=== PATIENT | female | born 1955 | race Caucasian/White ===

== ENCOUNTER 2017-05-01 18:28 | Inpatient (IN) | payer MEDICAID ==
[~2017-05-01] VITALS: Ht 167.6 cm; Wt 90.9 kg
[~2017-05-01 18:28] MED LIST: ALLO100T PO; CARV-50 PO; CITA40TA11 PO; CLON-527 PO; DILT30TA5 PO; HYDR-565 PO; LEVO50TA PO; MAG355OR18 PO; MULT1TAB74 PO; OMEP20TA5 PO; VENL150C58 PO
[2017-05-01] MEDS ORDERED: normal saline 1000ML IV soln IVB ONE (18:35)
[2017-05-01] MEDS ORDERED: albuterol 2.5 MG/3 ML nebule NEB ONE (18:45)
[2017-05-01] MEDS ORDERED: ipratropium/albuterol 3ml nebule NEB ONE (18:45)
[2017-05-01 19:17] LABS: BASOPHILS % (AUTO) 0 % (0-1); EOSINOPHILS # (AUTO) 0.2 X10'3 (0-0.9); EOSINOPHILS % (AUTO) 2.2 % (0-6); HEMATOCRIT 32.5 % (35.0-45.0); HEMOGLOBIN 10.8 g/dl (12.0-16.0); LYMPHOCYTES # (AUTO) 2.8 X10'3 (1.1-4.8); LYMPHOCYTES % (AUTO) 33.5 % (21-51); MEAN CORPUSCULAR HEMOGLOBIN 25.4 PG (27.0-31.0); MEAN CORPUSCULAR HGB CONC 33.1 % (33.0-36.5); MEAN CORPUSCULAR VOLUME 76.5 FL (78-98); MEAN PLATELET VOLUME 7.4 FL (7.4-10.4); MONOCYTES # (AUTO) 0.4 X10'3 (0-0.9); MONOCYTES % (AUTO) 4.6 % (2-12); NEUTROPHILS # (AUTO) 5.1 X10'3 (1.8-7.7); NEUTROPHILS % (AUTO) 59.7 % (42-75); PLATELET COUNT 320 X10'3 (140-440); RED BLOOD COUNT 4.25 X10'6 (4.20-5.60); RED CELL DISTRIBUTION WIDTH 21.5 % (11.5-14.5); WHITE BLOOD COUNT 8.5 X10'3 (4.5-11.0)
[2017-05-01 19:28] LABS: PROTHROMBIN TIME 10.6 SECONDS (9.0-12.0)
[2017-05-01 19:32] LABS: ALANINE AMINOTRANSFERASE 68 U/L (12-78); ALBUMIN 3.4 G/DL (3.4-5.0); ALBUMIN/GLOBULIN RATIO 0.6 (1.1-1.5); ALKALINE PHOSPHATASE 182 IU/L (46-116); ANION GAP 8 (8-16); ASPARTATE AMINO TRANSFERASE 132 U/L (10-37); BILIRUBIN,TOTAL 0.4 MG/DL (0.1-1.0); BLOOD UREA NITROGEN 8 MG/DL (7-18); BUN/CREATININE RATIO 15.4 (6.6-38.0); CALCIUM 8.9 MG/DL (8.5-10.1); CHLORIDE 99 MMOL/L (99-107); CREATININE 0.52 MG/DL (0.40-0.90); GLUCOSE 87 MG/DL (70-104); POTASSIUM 4.2 MMOL/L (3.5-5.1); SODIUM 133 MMOL/L (135-145); TOTAL CARBON DIOXIDE 26.3 MMOL/L (24-32); TOTAL PROTEIN 9.3 G/DL (6.4-8.2); eGFR > 90 ML/MIN
[2017-05-01 19:34] LABS: ETHANOL 0.335 GM/DL (0.0-0.010)
[2017-05-01 20:07] LABS: CLARITY,URINE CLOUDY (Clear); COLOR,URINE YELLOW (Yellow); GLUCOSE, URINE NEGATIVE (Neg); KETONES,URINE NEGATIVE (Neg); LEUKOCYTE ESTERASE ,URINE SMALL (Neg); NITRITES, URINE NEGATIVE (Neg); OCCULT BLOOD,URINE MODERATE (Neg); PROTEIN,URINE 30 mg/dl (Neg); UROBILINOGEN,URINE 0.2 E.U/dL (0.2-1.0)
[2017-05-01 20:09] LABS: UA COLLECTION TYPE VOIDED
[2017-05-01] MEDS ORDERED: methylPREDNISolone sod succ 125mg/2ml vial IV ONE (20:20)
[2017-05-01] MEDS ORDERED: furosemide 40mg/4ml inj IV ONE (20:20)
[2017-05-01 20:22] LABS: BACTERIA,URINE 4+ /HPF (Neg); SQUAMOUS EPITHELIAL CELL,UR MODERATE /LPF (FEW)
[2017-05-01 20:25] LABS: FINE GRANULAR CAST 0-3 /LPF (NEGATIVE); MUCUS STRANDS FEW /LPF (Neg)
[2017-05-01 20:46] LABS: MAGNESIUM 1.8 MG/DL (1.5-2.4)
[2017-05-01] MEDS ORDERED: LORazepam 2 mg/ml vial IV STA (21:18)
[2017-05-01] MEDS ORDERED: thiamine inj. 100 MG in normal saline 100ml IV soln 100 ML IV ONE (21:25)
[2017-05-01] MEDS ORDERED: mag hydrox/Alum hydrox/simeth 30ml oral suspension PO PRN (21:25)
[2017-05-01] MEDS ORDERED: magnesium hydroxide 30ml (MOM) UD suspension PO PRN (21:25)
[2017-05-01] MEDS ORDERED: acetaminophen 325mg tablet PO PRN ×2 (21:25)
[2017-05-01] MEDS ORDERED: ipratropium/albuterol 3ml nebule NEB PRN (21:25)
[2017-05-01] MEDS: normal saline 1000ml 1,000 ML IV SCH (22:10)
[2017-05-01] MEDS ORDERED: normal saline 100ml IV soln 100 ML IV ONE (23:00)
[2017-05-01] MEDS ORDERED: thiamine 100mg/ml 2ml inj. IV ONE (23:00)
[2017-05-01] MEDS: ondansetron/PF 4mg/2ml inj IV PRN (23:17)
[2017-05-02] VITALS: BP 136/76
[2017-05-02] MEDS: LORazepam 2 mg/ml vial IV PRN ×7 (00:32→21:46)
[2017-05-02] MEDS: methylPREDNISolone sod succ 125mg/2ml vial IV SCH ×4 (02:42→20:29)
[2017-05-02 03:15] LABS: BASOPHILS % (AUTO) 0 % (0-1); EOSINOPHILS % (AUTO) 0.7 % (0-6); HEMOGLOBIN 9.9 g/dl (12.0-16.0); LYMPHOCYTES # (AUTO) 0.5 X10'3 (1.1-4.8); MEAN CORPUSCULAR HEMOGLOBIN 25.1 PG (27.0-31.0); MEAN CORPUSCULAR VOLUME 76.1 FL (78-98); MEAN PLATELET VOLUME 7.4 FL (7.4-10.4); MONOCYTES # (AUTO) 0.1 X10'3 (0-0.9); MONOCYTES % (AUTO) 0.9 % (2-12); NEUTROPHILS # (AUTO) 5.6 X10'3 (1.8-7.7); NEUTROPHILS % (AUTO) 90.4 % (42-75); PLATELET COUNT 273 X10'3 (140-440); RED BLOOD COUNT 3.94 X10'6 (4.20-5.60); RED CELL DISTRIBUTION WIDTH 21.4 % (11.5-14.5); WHITE BLOOD COUNT 6.2 X10'3 (4.5-11.0)
[2017-05-02 03:19] LABS: ALBUMIN 3.3 G/DL (3.4-5.0); ANION GAP 13 (8-16); BLOOD UREA NITROGEN 7 MG/DL (7-18); CALCIUM 8.2 MG/DL (8.5-10.1); CHLORIDE 100 MMOL/L (99-107); CREATININE 0.54 MG/DL (0.40-0.90); GLUCOSE 140 MG/DL (70-104); MAGNESIUM 1.4 MG/DL (1.5-2.4); PHOSPHORUS 3.9 MG/DL (2.3-4.5); POTASSIUM 3.5 MMOL/L (3.5-5.1); SODIUM 138 MMOL/L (135-145); TOTAL CARBON DIOXIDE 24.6 MMOL/L (24-32); eGFR > 90 ML/MIN
[2017-05-02] MEDS ORDERED: pantoprazole 40mg Tablet.DR PO SCH (07:00)
[2017-05-02 07:13] VITALS: BP 149/91
[2017-05-02] MEDS ORDERED: citalopram 20mg tablet PO SCH (08:00)
[2017-05-02] MEDS ORDERED: folic acid inj. 2 MG, thiamine inj. 100 MG, MVI, adult No.4 with vit. K 10 ML in dextro... IV SCH ×4 (08:00)
[2017-05-02] MEDS: allopurinol 100mg tablet PO SCH (08:18)
[2017-05-02] MEDS: levoTHYROXINE 100mcg tablet PO SCH (08:18)
[2017-05-02] MEDS: venlafaxine XR 75mg capsule (Q24H) PO SCH (08:18)
[2017-05-02] MEDS: folic acid 1mg tablet PO SCH (08:18)
[2017-05-02] MEDS: carVEDilol 12.5mg tablet PO SCH ×2 (08:18→20:29)
[2017-05-02] MEDS: multivitamins, therapeutics tablet PO SCH (08:18)
[2017-05-02] MEDS: thiamine 100mg tablet PO SCH (08:18)
[2017-05-02] MEDS: diltiazem 30mg tablet PO SCH ×2 (08:18→17:19)
[2017-05-02] MEDS: normal saline 1000ml 1,000 ML IV SCH ×2 (09:53→20:41)
[2017-05-02] MEDS ORDERED: ASPI-10 PO (10:05)
[2017-05-02 11:13] VITALS: BP 138/69
[2017-05-02 15:20] LABS: BASOPHILS % (AUTO) 0.4 % (0-1); EOSINOPHILS # (AUTO) 0.1 X10'3 (0-0.9); EOSINOPHILS % (AUTO) 1.2 % (0-6); HEMATOCRIT 30.5 % (35.0-45.0); HEMOGLOBIN 10.2 g/dl (12.0-16.0); LYMPHOCYTES # (AUTO) 0.6 X10'3 (1.1-4.8); LYMPHOCYTES % (AUTO) 6.9 % (21-51); MEAN CORPUSCULAR HEMOGLOBIN 25.5 PG (27.0-31.0); MEAN CORPUSCULAR HGB CONC 33.4 % (33.0-36.5); MEAN CORPUSCULAR VOLUME 76.4 FL (78-98); MEAN PLATELET VOLUME 7.4 FL (7.4-10.4); MONOCYTES # (AUTO) 0.1 X10'3 (0-0.9); MONOCYTES % (AUTO) 1.2 % (2-12); NEUTROPHILS # (AUTO) 7.6 X10'3 (1.8-7.7); NEUTROPHILS % (AUTO) 90.3 % (42-75); PLATELET COUNT 258 X10'3 (140-440); RED BLOOD COUNT 3.99 X10'6 (4.20-5.60); RED CELL DISTRIBUTION WIDTH 20.9 % (11.5-14.5); WHITE BLOOD COUNT 8.4 X10'3 (4.5-11.0)
[2017-05-02] MEDS ORDERED: haloperidol lactate 5mg/ml inj IM PRN (15:20)
[2017-05-02 15:55] LABS: ANISOCYTOSIS 3+; MICROCYTOSIS 1+; PLATELET ESTIMATE NORMAL; STOMATOCYTES FEW; TARGET CELLS 2+
[2017-05-02] MEDS: pantoprazole 40 MG vial IV SCH (17:17)
[2017-05-02] MEDS: sertraline 50mg tablet PO SCH (17:18)
[2017-05-02 18:00] VITALS: BP 141/82
[2017-05-02 20:25] VITALS: BP 132/83
[2017-05-02 22:00] VITALS: BP 118/68
[2017-05-03 00:35] VITALS: BP 150/72
[2017-05-03] MEDS: diltiazem 30mg tablet PO SCH ×3 (00:38→16:10)
[2017-05-03] MEDS: LORazepam 2 mg/ml vial IV PRN ×13 (00:39→22:35)
[2017-05-03] MEDS: methylPREDNISolone sod succ 125mg/2ml vial IV SCH ×4 (02:03→19:15)
[2017-05-03] MEDS: normal saline 1000ml 1,000 ML IV SCH ×3 (03:24→18:45)
[2017-05-03 06:00] VITALS: BP 137/86
[2017-05-03 06:37] LABS: BASOPHILS % (AUTO) 0 % (0-1); EOSINOPHILS # (AUTO) 0.1 X10'3 (0-0.9); EOSINOPHILS % (AUTO) 1.6 % (0-6); HEMOGLOBIN 10.2 g/dl (12.0-16.0); LYMPHOCYTES # (AUTO) 0.8 X10'3 (1.1-4.8); LYMPHOCYTES % (AUTO) 9.5 % (21-51); MEAN CORPUSCULAR HEMOGLOBIN 25.4 PG (27.0-31.0); MEAN CORPUSCULAR VOLUME 77.1 FL (78-98); MONOCYTES # (AUTO) 0.2 X10'3 (0-0.9); MONOCYTES % (AUTO) 2.5 % (2-12); NEUTROPHILS # (AUTO) 7.6 X10'3 (1.8-7.7); NEUTROPHILS % (AUTO) 86.4 % (42-75); PLATELET COUNT 247 X10'3 (140-440); RED BLOOD COUNT 4.02 X10'6 (4.20-5.60); RED CELL DISTRIBUTION WIDTH 20.7 % (11.5-14.5); WHITE BLOOD COUNT 8.8 X10'3 (4.5-11.0)
[2017-05-03 06:51] LABS: ANION GAP 6 (8-16); BLOOD UREA NITROGEN 13 MG/DL (7-18); CALCIUM 8.6 MG/DL (8.5-10.1); CHLORIDE 98 MMOL/L (99-107); CREATININE 0.59 MG/DL (0.40-0.90); GLUCOSE 162 MG/DL (70-104); MAGNESIUM 1.8 MG/DL (1.5-2.4); PHOSPHORUS 2.8 MG/DL (2.3-4.5); SODIUM 134 MMOL/L (135-145); TOTAL CARBON DIOXIDE 30.3 MMOL/L (24-32); eGFR > 90 ML/MIN
[2017-05-03] MEDS ORDERED: potassium Cl 20 mEq SR tablet PO PRN (07:30)
[2017-05-03] MEDS ORDERED: potassium Cl 40MEQ/NS 500ml 500 ML IV PRN ×2 (07:30)
[2017-05-03] MEDS: multivitamins, therapeutics tablet PO SCH (07:41)
[2017-05-03] MEDS: pantoprazole 40 MG vial IV SCH (07:41)
[2017-05-03] MEDS: allopurinol 100mg tablet PO SCH (07:42)
[2017-05-03] MEDS: thiamine 100mg tablet PO SCH (07:42)
[2017-05-03] MEDS: venlafaxine XR 75mg capsule (Q24H) PO SCH (07:42)
[2017-05-03] MEDS: carVEDilol 12.5mg tablet PO SCH ×2 (07:42→19:15)
[2017-05-03] MEDS: folic acid 1mg tablet PO SCH (07:42)
[2017-05-03] MEDS: levoTHYROXINE 100mcg tablet PO SCH (07:42)
[2017-05-03] MEDS: sertraline 50mg tablet PO SCH (07:42)
[2017-05-03] MEDS: potassium Cl 20 mEq SR tablet PO PRN ×3 (07:43→21:52)
[2017-05-03] MEDS ORDERED: citalopram 20mg tablet PO SCH (08:00)
[2017-05-03 10:00] VITALS: BP 136/76
[2017-05-03] MEDS: ondansetron/PF 4mg/2ml inj IV PRN (16:11)
[2017-05-03 18:00] VITALS: BP 141/67
[2017-05-03 19:10] VITALS: BP 116/56
[2017-05-03] MEDS: citalopram 20mg tablet PO SCH (19:15)
[2017-05-03] MEDS ORDERED: LORazepam 2 mg/ml vial IV PRN (21:25)
[2017-05-03] MEDS ORDERED: LORazepam 1 MG tablet PO PRN (21:25)
[2017-05-03 22:02] VITALS: BP 129/69
[2017-05-04] MEDS: diltiazem 30mg tablet PO SCH ×4 (00:54→23:56)
[2017-05-04] MEDS: LORazepam 2 mg/ml vial IV PRN ×6 (00:55→23:56)
[2017-05-04] MEDS: methylPREDNISolone sod succ 125mg/2ml vial IV SCH ×4 (01:00→20:29)
[2017-05-04] MEDS: normal saline 1000ml 1,000 ML IV SCH ×2 (04:23→14:49)
[2017-05-04 06:00] VITALS: BP 143/72
[2017-05-04 06:33] LABS: BASOPHILS % (AUTO) 0.1 % (0-1); EOSINOPHILS # (AUTO) 0.1 X10'3 (0-0.9); EOSINOPHILS % (AUTO) 1.7 % (0-6); HEMATOCRIT 31.7 % (35.0-45.0); HEMOGLOBIN 10.4 g/dl (12.0-16.0); LYMPHOCYTES # (AUTO) 0.8 X10'3 (1.1-4.8); MEAN CORPUSCULAR HEMOGLOBIN 25.4 PG (27.0-31.0); MEAN CORPUSCULAR HGB CONC 32.8 % (33.0-36.5); MEAN CORPUSCULAR VOLUME 77.5 FL (78-98); MEAN PLATELET VOLUME 8.2 FL (7.4-10.4); MONOCYTES # (AUTO) 0.1 X10'3 (0-0.9); MONOCYTES % (AUTO) 1.8 % (2-12); NEUTROPHILS # (AUTO) 7.2 X10'3 (1.8-7.7); NEUTROPHILS % (AUTO) 86.4 % (42-75); PLATELET COUNT 244 X10'3 (140-440); RED BLOOD COUNT 4.09 X10'6 (4.20-5.60); RED CELL DISTRIBUTION WIDTH 21.5 % (11.5-14.5); WHITE BLOOD COUNT 8.3 X10'3 (4.5-11.0)
[2017-05-04 06:54] LABS: ALBUMIN 2.8 G/DL (3.4-5.0); ANION GAP 5 (8-16); BLOOD UREA NITROGEN 14 MG/DL (7-18); CALCIUM 8.7 MG/DL (8.5-10.1); CHLORIDE 101 MMOL/L (99-107); GLUCOSE 174 MG/DL (70-104); MAGNESIUM 1.8 MG/DL (1.5-2.4); PHOSPHORUS 2.5 MG/DL (2.3-4.5); POTASSIUM 3.5 MMOL/L (3.5-5.1); SODIUM 135 MMOL/L (135-145); eGFR > 90 ML/MIN
[2017-05-04] MEDS: allopurinol 100mg tablet PO SCH (08:29)
[2017-05-04] MEDS: multivitamins, therapeutics tablet PO SCH (08:29)
[2017-05-04] MEDS: folic acid 1mg tablet PO SCH (08:29)
[2017-05-04] MEDS: levoTHYROXINE 100mcg tablet PO SCH (08:30)
[2017-05-04] MEDS: sertraline 50mg tablet PO SCH (08:30)
[2017-05-04] MEDS: citalopram 20mg tablet PO SCH ×2 (08:30→20:29)
[2017-05-04] MEDS: thiamine 100mg tablet PO SCH (08:30)
[2017-05-04] MEDS: carVEDilol 12.5mg tablet PO SCH ×2 (08:30→20:29)
[2017-05-04] MEDS: pantoprazole 40mg Tablet.DR PO SCH (08:30)
[2017-05-04] MEDS: venlafaxine XR 75mg capsule (Q24H) PO SCH (08:42)
[2017-05-04 11:00] VITALS: BP 124/65
[2017-05-04] MEDS: HYDROcodone/acetaminophen 10/325mg tab PO PRN ×2 (14:47→22:47)
[2017-05-04 18:30] VITALS: BP 140/90
[2017-05-04] MEDS ORDERED: iohexol 300mg/ml 100ml inj. ONE (19:41)
[2017-05-04 22:00] VITALS: BP 133/76
[2017-05-05] MEDS: methylPREDNISolone sod succ 125mg/2ml vial IV SCH ×3 (02:29→13:39)
[2017-05-05] MEDS: normal saline 1000ml 1,000 ML IV SCH (02:29)
[2017-05-05 05:00] VITALS: BP 141/78
[2017-05-05] MEDS: LORazepam 2 mg/ml vial IV PRN (05:08)
[2017-05-05 06:15] LABS: BASOPHILS % (AUTO) 0 % (0-1); EOSINOPHILS # (AUTO) 0.2 X10'3 (0-0.9); EOSINOPHILS % (AUTO) 1.9 % (0-6); HEMATOCRIT 32.1 % (35.0-45.0); HEMOGLOBIN 10.3 g/dl (12.0-16.0); LYMPHOCYTES # (AUTO) 0.9 X10'3 (1.1-4.8); LYMPHOCYTES % (AUTO) 8.8 % (21-51); MEAN CORPUSCULAR HEMOGLOBIN 25.1 PG (27.0-31.0); MEAN CORPUSCULAR VOLUME 78.2 FL (78-98); MEAN PLATELET VOLUME 7.9 FL (7.4-10.4); MONOCYTES # (AUTO) 0.2 X10'3 (0-0.9); NEUTROPHILS # (AUTO) 8.4 X10'3 (1.8-7.7); NEUTROPHILS % (AUTO) 87.3 % (42-75); PLATELET COUNT 228 X10'3 (140-440); RED BLOOD COUNT 4.11 X10'6 (4.20-5.60); RED CELL DISTRIBUTION WIDTH 21.1 % (11.5-14.5); WHITE BLOOD COUNT 9.7 X10'3 (4.5-11.0)
[2017-05-05 06:48] LABS: % IRON SATURATION 8 % (11-46); IRON 31 UG/DL (49-151); TOTAL IRON BINDING CAPACITY 366 UG/DL (259-388)
[2017-05-05 06:52] LABS: ALBUMIN 2.8 G/DL (3.4-5.0); ANION GAP 7 (8-16); BLOOD UREA NITROGEN 14 MG/DL (7-18); BUN/CREATININE RATIO 23.3 (6.6-38.0); CALCIUM 8.5 MG/DL (8.5-10.1); CHLORIDE 100 MMOL/L (99-107); GLUCOSE 165 MG/DL (70-104); MAGNESIUM 1.6 MG/DL (1.5-2.4); PHOSPHORUS 2.9 MG/DL (2.3-4.5); SODIUM 135 MMOL/L (135-145); TOTAL CARBON DIOXIDE 28.1 MMOL/L (24-32); eGFR > 90 ML/MIN
[2017-05-05] MEDS: allopurinol 100mg tablet PO SCH (07:07)
[2017-05-05] MEDS: HYDROcodone/acetaminophen 10/325mg tab PO PRN ×3 (07:08→18:23)
[2017-05-05] MEDS: thiamine 100mg tablet PO SCH (07:08)
[2017-05-05] MEDS: levoTHYROXINE 100mcg tablet PO SCH (07:08)
[2017-05-05] MEDS: pantoprazole 40mg Tablet.DR PO SCH (07:08)
[2017-05-05] MEDS: citalopram 20mg tablet PO SCH (07:08)
[2017-05-05] MEDS: carVEDilol 12.5mg tablet PO SCH (07:08)
[2017-05-05] MEDS: folic acid 1mg tablet PO SCH (07:08)
[2017-05-05] MEDS: sertraline 50mg tablet PO SCH (07:08)
[2017-05-05] MEDS: diltiazem 30mg tablet PO SCH ×2 (07:08→16:35)
[2017-05-05] MEDS: multivitamins, therapeutics tablet PO SCH (07:08)
[2017-05-05] MEDS: venlafaxine XR 75mg capsule (Q24H) PO SCH (07:09)
[2017-05-05 07:18] LABS: POTASSIUM 2.8 MMOL/L (3.5-5.1)
[2017-05-05] MEDS: potassium Cl 20 mEq SR tablet PO PRN ×3 (08:16→16:35)
[2017-05-05 10:00] VITALS: BP 136/74
[2017-05-05] MEDS ORDERED: clonazePAM 0.5mg tablet PO SCH (16:00)
[2017-05-05 18:00] VITALS: BP 134/71
[2017-05-05] MEDS ORDERED: LORazepam 2 mg/ml vial IV PRN (21:25)
[2017-05-05] MEDS ORDERED: LORazepam 1 MG tablet PO PRN (21:25)
== END 2017-05-05 18:40 | disposition home or self-care (01) | DRG 775 ==
LOC: ER 18:28 → ED HOLD 21:24 → ORTHO 4S 23:50
PROVIDERS: ADMIT Internal Medicine; ATTEND Family Medicine
PROC: BW281ZZ Computerized Tomography (CT Scan) of Head using Low Osmolar Contrast (ICD-10-PCS; principal; 2017-05-04)
DX: F10.239 Alcohol dependence with withdrawal, unspecified (principal); F10.231 Alcohol dependence with withdrawal delirium; J44.1 Chronic obstructive pulmonary disease with (acute) exacerbation; E87.1 Hypo-osmolality and hyponatremia; D50.9 Iron deficiency anemia, unspecified; F10.229 Alcohol dependence with intoxication, unspecified; I48.0 Paroxysmal atrial fibrillation; F32.9 Major depressive disorder, single episode, unspecified; E03.9 Hypothyroidism, unspecified; F41.9 Anxiety disorder, unspecified; E78.00 Pure hypercholesterolemia, unspecified; E87.6 Hypokalemia; K29.20 Alcoholic gastritis without bleeding; Z60.2 Problems related to living alone; S50.01XA Contusion of right elbow, initial encounter; F17.210 Nicotine dependence, cigarettes, uncomplicated; F17.200 Nicotine dependence, unspecified, uncomplicated; W17.89XA Other fall from one level to another, initial encounter; I25.10 Atherosclerotic heart disease of native coronary artery without angina pectoris; R29.6 Repeated falls; Y90.8 Blood alcohol level of 240 mg/100 ml or more; Z87.11 Personal history of peptic ulcer disease; Z83.3 Family history of diabetes mellitus; Z82.49 Family history of ischemic heart disease and other diseases of the circulatory system; Z80.9 Family history of malignant neoplasm, unspecified; Y93.89 Activity, other specified; Y92.098 Other place in other non-institutional residence as the place of occurrence of the external cause; Y99.8 Other external cause status
CPT/HCPCS: 36415; 70470; 71045; 72125; 73080; 80048; 80053; 80320; 81001; 82607; 82746; 82948; 83540; 83550; 83735; 83880; 84100; 84132; 84443; 84484; 85025; 85610; 86870; 86885; 86900; 86901; 86902; 86905; 87070; 93005; 94640; 94760; 96361; 96374; 96375; 97116; 97162; 99285; A6258; C9113; J1940; J2060; J2405; J2930; J3411; J3490; J7030; J7060; Q9967

== ENCOUNTER 2017-05-28 17:09 | Emergency (ER) | payer MEDICAID ==
[~2017-05-28] VITALS: Ht 167.6 cm; Wt 90.9 kg
[~2017-05-28 17:09] MED LIST changes: +ASPI-10 PO
[2017-05-28] MEDS ORDERED: ondansetron 4mg rapidly disintigrating tab PO ONE (17:40)
[2017-05-28] MEDS ORDERED: HYDROcodone/acetaminophen 10/325mg tab PO ONE (17:40)
[2017-05-28 18:29] VITALS: BP 142/65
[2017-05-29] MEDS ORDERED: CIPR-230 PO (02:05)
[2017-05-29] MEDS ORDERED: NYST30CR2 TP (02:05)
== END 2017-05-28 18:33 | disposition home or self-care (01) ==
LOC: ER 17:10
DX: S60.221A Contusion of right hand, initial encounter (principal); S60.021A Contusion of right index finger without damage to nail, initial encounter; S60.051A Contusion of right little finger without damage to nail, initial encounter; S50.11XA Contusion of right forearm, initial encounter; S50.01XA Contusion of right elbow, initial encounter; E78.00 Pure hypercholesterolemia, unspecified; I25.2 Old myocardial infarction; I10 Essential (primary) hypertension; Z60.2 Problems related to living alone; Z98.62 Peripheral vascular angioplasty status; Z98.890 Other specified postprocedural states; Z88.2 Allergy status to sulfonamides; Z79.82 Long term (current) use of aspirin; Z79.899 Other long term (current) drug therapy; W01.0XXA Fall on same level from slipping, tripping and stumbling without subsequent striking against object, initial encounter; Y93.89 Activity, other specified; Y92.89 Other specified places as the place of occurrence of the external cause; Y99.8 Other external cause status
CPT/HCPCS: 73130; 99284

== ENCOUNTER 2017-05-29 00:31 | Emergency (ER) | payer MEDICAID ==
[~2017-05-29] VITALS: Ht 152.4 cm; Wt 100.0 kg
[2017-05-29] MEDS ORDERED: thiamine 100mg tablet PO ONE (00:40)
[2017-05-29 01:16] LABS: BASOPHILS % (AUTO) 0.3 % (0-1); EOSINOPHILS % (AUTO) 0.3 % (0-6); HEMATOCRIT 28.6 % (35.0-45.0); HEMOGLOBIN 9.9 g/dl (12.0-16.0); LYMPHOCYTES # (AUTO) 2.8 X10'3 (1.1-4.8); LYMPHOCYTES % (AUTO) 18.1 % (21-51); MEAN CORPUSCULAR HEMOGLOBIN 27.7 PG (27.0-31.0); MEAN CORPUSCULAR HGB CONC 34.8 % (33.0-36.5); MEAN CORPUSCULAR VOLUME 79.6 FL (78-98); MEAN PLATELET VOLUME 6.8 FL (7.4-10.4); MONOCYTES # (AUTO) 0.8 X10'3 (0-0.9); MONOCYTES % (AUTO) 5.4 % (2-12); NEUTROPHILS % (AUTO) 75.9 % (42-75); PLATELET COUNT 453 X10'3 (140-440); RED BLOOD COUNT 3.59 X10'6 (4.20-5.60); RED CELL DISTRIBUTION WIDTH 22.9 % (11.5-14.5); WHITE BLOOD COUNT 15.6 X10'3 (4.5-11.0)
[2017-05-29 01:22] LABS: PARTIAL THROMBOPLASTIN TIME 35 SECONDS (22-32)
[2017-05-29 01:24] LABS: ALANINE AMINOTRANSFERASE 36 U/L (12-78); ALBUMIN 2.7 G/DL (3.4-5.0); ALBUMIN/GLOBULIN RATIO 0.6 (1.1-1.5); ALKALINE PHOSPHATASE 197 IU/L (46-116); ANION GAP 15 (8-16); ASPARTATE AMINO TRANSFERASE 63 U/L (10-37); BILIRUBIN,TOTAL 0.4 MG/DL (0.1-1.0); BLOOD UREA NITROGEN 6 MG/DL (7-18); BUN/CREATININE RATIO 9.7 (6.6-38.0); CALCIUM 8.2 MG/DL (8.5-10.1); CHLORIDE 92 MMOL/L (99-107); CREATININE 0.62 MG/DL (0.40-0.90); ETHANOL 0.234 GM/DL (0.0-0.010); GLUCOSE 82 MG/DL (70-104); MAGNESIUM 1.7 MG/DL (1.5-2.4); POTASSIUM 3.7 MMOL/L (3.5-5.1); SODIUM 128 MMOL/L (135-145); TOTAL CARBON DIOXIDE 21.1 MMOL/L (24-32); eGFR > 90 ML/MIN
[2017-05-29 01:34] LABS: ACETAMINOPHEN < 2.0 UG/ML (10-30)
[2017-05-29 01:37] LABS: URINE AMPHETAMINE SCREEN NEGATIVE (Neg); URINE BARBITUATE SCREEN NEGATIVE (Neg); URINE BENZODIAZEPINES SCREEN NEGATIVE (Neg); URINE CANNABINOID SCREEN NEGATIVE (Neg); URINE COCAINE SCREEN NEGATIVE (Neg); URINE METHADONE SCREEN NEGATIVE (Neg); URINE OPIATE SCREEN POSITIVE (Neg); URINE PHENCYCLIDINE SCREEN NEGATIVE (Neg)
[2017-05-29 01:41] LABS: CLARITY,URINE SLIGHTLY CLOUDY (Clear); COLOR,URINE YELLOW (Yellow); GLUCOSE, URINE NEGATIVE (Neg); KETONES,URINE NEGATIVE (Neg); LEUKOCYTE ESTERASE ,URINE NEGATIVE (Neg); NITRITES, URINE POSITIVE (Neg); OCCULT BLOOD,URINE NEGATIVE (Neg); PROTEIN,URINE NEGATIVE (Neg); UROBILINOGEN,URINE 0.2 E.U/dL (0.2-1.0)
[2017-05-29 01:52] LABS: UA COLLECTION TYPE STRAIGHT CATH
[2017-05-29 01:56] LABS: BACTERIA,URINE 4+ /HPF (Neg); RBC,URINE 0-2 /HPF (0-2); SQUAMOUS EPITHELIAL CELL,UR FEW /LPF (FEW); WBC,URINE 0-4 /HPF (0-4)
[2017-05-29] MEDS ORDERED: ciprofloxacin 250mg tablet PO ONE (02:00)
[2017-05-29] MEDS ORDERED: CIPR-230 PO (02:05)
[2017-05-29] MEDS ORDERED: NYST30CR2 TP (02:05)
[2017-05-29 02:34] LABS: ANISOCYTOSIS 3+; PLATELET ESTIMATE INCREASED; TOTAL CELLS COUNTED 100
[2017-05-29 03:28] VITALS: BP 109/73
== END 2017-05-29 03:41 | disposition home or self-care (01) ==
LOC: ER 00:31
DX: S60.221A Contusion of right hand, initial encounter (principal); F10.20 Alcohol dependence, uncomplicated; N39.0 Urinary tract infection, site not specified; I25.10 Atherosclerotic heart disease of native coronary artery without angina pectoris; E78.00 Pure hypercholesterolemia, unspecified; I10 Essential (primary) hypertension; I25.2 Old myocardial infarction; Z95.1 Presence of aortocoronary bypass graft; Z60.2 Problems related to living alone; Z98.61 Coronary angioplasty status; Z88.2 Allergy status to sulfonamides; Z79.82 Long term (current) use of aspirin; Z79.899 Other long term (current) drug therapy; W18.39XA Other fall on same level, initial encounter; Y93.89 Activity, other specified; Y92.89 Other specified places as the place of occurrence of the external cause; Y99.8 Other external cause status
CPT/HCPCS: 36415; 80053; 80305; 80320; 80329; 81001; 83735; 85025; 85610; 85730; 87077; 87088; 87186; 99284; J7030; A6250

== ENCOUNTER 2018-03-24 22:22 | Inpatient (IN) | payer MEDICAID ==
[~2018-03-24] VITALS: Ht 167.6 cm; Wt 99.0 kg
[~2018-03-24 22:22] MED LIST changes: +HYDR-4353 PO; -HYDR-565 PO; +NYST30CR2 TP
[2018-03-24 22:57] LABS: INR 1.1 INR; PARTIAL THROMBOPLASTIN TIME 34 SECONDS (22-32); PROTHROMBIN TIME 10.7 SECONDS (9.0-12.0)
[2018-03-24 22:58] LABS: ALANINE AMINOTRANSFERASE 55 U/L (12-78); ALBUMIN 3.5 G/DL (3.4-5.0); ALBUMIN/GLOBULIN RATIO 0.7 (1.1-1.5); ALKALINE PHOSPHATASE 148 IU/L (46-116); ANION GAP 8 (8-16); ASPARTATE AMINO TRANSFERASE 57 U/L (10-37); BILIRUBIN,TOTAL 0.4 MG/DL (0.1-1.0); BLOOD UREA NITROGEN 10 MG/DL (7-18); BUN/CREATININE RATIO 11.1 (6.6-38.0); CALCIUM 9.5 MG/DL (8.5-10.1); CHLORIDE 99 MMOL/L (99-107); GLUCOSE 117 MG/DL (70-104); SODIUM 136 MMOL/L (135-145); TOTAL CARBON DIOXIDE 28.6 MMOL/L (24-32); TOTAL PROTEIN 8.3 G/DL (6.4-8.2); eGFR 63 ML/MIN
[2018-03-24 23:09] LABS: BASOPHILS # (AUTO) 0.1 X10'3 (0-0.2); BASOPHILS % (AUTO) 0.6 % (0-1); EOSINOPHILS # (AUTO) 0.6 X10'3 (0-0.9); EOSINOPHILS % (AUTO) 3.6 % (0-6); HEMATOCRIT 44.3 % (35.0-45.0); HEMOGLOBIN 14.7 g/dl (12.0-16.0); LYMPHOCYTES # (AUTO) 5.5 X10'3 (1.1-4.8); LYMPHOCYTES % (AUTO) 33.8 % (21-51); MEAN CORPUSCULAR HEMOGLOBIN 29.1 PG (27.0-31.0); MEAN CORPUSCULAR HGB CONC 33.1 % (33.0-36.5); MEAN CORPUSCULAR VOLUME 87.9 FL (78-98); MEAN PLATELET VOLUME 8.7 FL (7.4-10.4); MONOCYTES # (AUTO) 1.1 X10'3 (0-0.9); NEUTROPHILS # (AUTO) 8.9 X10'3 (1.8-7.7); PLATELET COUNT 317 X10'3 (140-440); RED BLOOD COUNT 5.04 X10'6 (4.20-5.60); RED CELL DISTRIBUTION WIDTH 13.9 % (11.5-14.5); WHITE BLOOD COUNT 16.3 X10'3 (4.5-11.0)
[2018-03-24 23:45] LABS: D-DIMER 0.51 MG/L FEU (0-0.50)
[2018-03-25] VITALS (12 sets, daily range): BP systolic 97–136; BP diastolic 47–73
[2018-03-25] MEDS ORDERED: mag hydrox/Alum hydrox/simeth 30ml oral suspension PO PRN (00:10)
[2018-03-25] MEDS ORDERED: morphine 2 MG/ML inj. syringe IV PRN (00:10)
[2018-03-25] MEDS ORDERED: diphenhydrAMINE 50 mg/ml inj IV PRN (00:10)
[2018-03-25] MEDS ORDERED: acetaminophen 650mg rectal suppository RC PRN (00:10)
[2018-03-25] MEDS ORDERED: ondansetron/PF 4mg/2ml inj IV PRN (00:10)
[2018-03-25] MEDS ORDERED: magnesium hydroxide 30ml (MOM) UD suspension PO PRN (00:10)
[2018-03-25] MEDS ORDERED: acetaminophen 325mg tablet PO PRN (00:10)
[2018-03-25] MEDS ORDERED: HYDROmorphone 1 mg/ml syringe IV PRN (00:10)
[2018-03-25] MEDS ORDERED: diphenhydrAMINE 25mg capsule PO PRN (00:10)
[2018-03-25] MEDS ORDERED: metoclopramide 5 mg/ml inj IV PRN (00:10)
[2018-03-25] MEDS ORDERED: bisacodyl 10mg suppository rectal RC PRN (00:10)
[2018-03-25] MEDS ORDERED: ondansetron/PF 4mg/2ml inj IV ONE (00:15)
[2018-03-25] MEDS ORDERED: morphine 4 MG/ML inj SYRINge IV ONE (00:15)
[2018-03-25] MEDS ORDERED: metoprolol tartrate 1mg/ml inj IV PRN (00:20)
[2018-03-25] MEDS ORDERED: nitroGLYCERIN 0.4mg SUBLingual tab SL PRN (00:20)
[2018-03-25] MEDS ORDERED: regadenoson 0.4mg/5ml syringe IV ONE ×2 (00:20→10:50)
[2018-03-25] MEDS ORDERED: aminophylline 250mg/10ml inj. IV PRN (00:20)
[2018-03-25] MEDS: normal saline 1000ml 1,000 ML IV SCH ×3 (00:51→16:18)
[2018-03-25 02:52] LABS: CLARITY,URINE CLOUDY (Clear); COLOR,URINE YELLOW (Yellow); GLUCOSE, URINE NEGATIVE (Neg); KETONES,URINE NEGATIVE (Neg); LEUKOCYTE ESTERASE ,URINE SMALL (Neg); NITRITES, URINE POSITIVE (Neg); OCCULT BLOOD,URINE NEGATIVE (Neg); PH,URINE 5.5 (4.8-8.0); PROTEIN,URINE NEGATIVE (Neg); UROBILINOGEN,URINE 0.2 E.U/dL (0.2-1.0)
[2018-03-25 02:53] LABS: UA COLLECTION TYPE CLN CATCH MIDSTREAM
[2018-03-25 02:55] LABS: MAGNESIUM 1.8 MG/DL (1.5-2.4); PHOSPHORUS 4.3 MG/DL (2.3-4.5)
[2018-03-25 03:00] LABS: BACTERIA,URINE 3+ /HPF (Neg); RBC,URINE NONE SEEN /HPF (0-2); WBC,URINE 30-50 /HPF (0-4)
[2018-03-25 03:01] LABS: MUCUS STRANDS FEW /LPF (Neg); SQUAMOUS EPITHELIAL CELL,UR MODERATE /LPF (FEW); WBC CLUMPS,URINE MODERATE /HPF (NEGATIVE)
[2018-03-25 03:05] LABS: URINE AMPHETAMINE SCREEN NEGATIVE (Neg); URINE BARBITUATE SCREEN NEGATIVE (Neg); URINE BENZODIAZEPINES SCREEN POSITIVE (Neg); URINE CANNABINOID SCREEN NEGATIVE (Neg); URINE COCAINE SCREEN NEGATIVE (Neg); URINE METHADONE SCREEN NEGATIVE (Neg); URINE OPIATE SCREEN POSITIVE (Neg); URINE PHENCYCLIDINE SCREEN NEGATIVE (Neg)
[2018-03-25] MEDS ORDERED: GABA-532 PO ×2 (03:06→03:07)
[2018-03-25] MEDS ORDERED: albuterol 2.5 MG/3 ML nebule NEB PRN (04:20)
[2018-03-25 07:33] LABS: HEMOGLOBIN A1C 7.5 % (4.5-6.2)
[2018-03-25] MEDS: nicotine 21mg patch - 24 hr TD SCH (08:00)
[2018-03-25] MEDS: heparin, porcine 5000 units/ml vial SQ SCH ×2 (08:00→16:00)
[2018-03-25] MEDS: nitroGLYCERIN 0.1mg/hour patch TD SCH (08:00)
[2018-03-25] MEDS ORDERED: aspirin 81mg tab.chew PO SCH (08:30)
[2018-03-25] MEDS: levoFLOXACIN-Levaquin 500mg/D5 100 ML IV SCH (08:50)
[2018-03-25] MEDS ORDERED: aminophylline inj. 10 ML IV ONE (10:50)
[2018-03-25] MEDS: citalopram 20mg tablet PO SCH ×2 (12:22→20:24)
[2018-03-25] MEDS: docusate sod 100mg capsule PO SCH ×2 (12:23→20:25)
[2018-03-25] MEDS: atorvastatin 20mg tablet PO SCH (12:24)
[2018-03-25] MEDS: lisinopril 10 MG tablet PO SCH (12:24)
[2018-03-25] MEDS: acetaminophen 325mg tablet PO PRN (12:25)
[2018-03-25] MEDS: methylPREDNISolone sod succ 125mg/2ml vial IV SCH ×2 (12:26→20:25)
[2018-03-25] MEDS: venlafaxine 25mg tablet PO SCH ×4 (12:43→20:24)
[2018-03-25] MEDS ORDERED: non-formulary drug (Omeprazole 1 TAB) PO SCH (20:00)
[2018-03-25] MEDS: famotidine 20mg tablet PO SCH (20:24)
[2018-03-25] MEDS: gabapentin 300mg capsule PO SCH (20:25)
[2018-03-25] MEDS: pantoprazole 40mg Tablet.DR PO SCH (20:25)
[2018-03-25] MEDS: carVEDilol 12.5mg tablet PO SCH (20:28)
[2018-03-25] MEDS ORDERED: temazepam 15mg capsule PO PRN (21:00)
[2018-03-26] VITALS: BP 116/66
[2018-03-26] MEDS: normal saline 1000ml 1,000 ML IV SCH ×3 (01:43→23:30)
[2018-03-26] MEDS: HYDROcodone/acetaminophen 10/325mg tab PO PRN ×2 (05:51→17:38)
[2018-03-26 06:06] LABS: BASOPHILS % (AUTO) 0.2 % (0-1); EOSINOPHILS % (AUTO) 0 % (0-6); HEMATOCRIT 37.5 % (35.0-45.0); HEMOGLOBIN 12.5 g/dl (12.0-16.0); LYMPHOCYTES # (AUTO) 1.2 X10'3 (1.1-4.8); LYMPHOCYTES % (AUTO) 9.9 % (21-51); MEAN CORPUSCULAR HEMOGLOBIN 29.5 PG (27.0-31.0); MEAN CORPUSCULAR HGB CONC 33.4 % (33.0-36.5); MEAN CORPUSCULAR VOLUME 88.1 FL (78-98); MEAN PLATELET VOLUME 8.7 FL (7.4-10.4); MONOCYTES # (AUTO) 0.1 X10'3 (0-0.9); MONOCYTES % (AUTO) 0.8 % (2-12); NEUTROPHILS # (AUTO) 10.7 X10'3 (1.8-7.7); NEUTROPHILS % (AUTO) 89.1 % (42-75); PLATELET COUNT 219 X10'3 (140-440); RED BLOOD COUNT 4.26 X10'6 (4.20-5.60); RED CELL DISTRIBUTION WIDTH 13.6 % (11.5-14.5); WHITE BLOOD COUNT 12.1 X10'3 (4.5-11.0)
[2018-03-26 06:21] LABS: ALANINE AMINOTRANSFERASE 45 U/L (12-78); ALBUMIN 2.7 G/DL (3.4-5.0); ALBUMIN/GLOBULIN RATIO 0.7 (1.1-1.5); ALKALINE PHOSPHATASE 110 IU/L (46-116); ANION GAP 9 (8-16); ASPARTATE AMINO TRANSFERASE 39 U/L (10-37); BILIRUBIN,TOTAL 0.3 MG/DL (0.1-1.0); BLOOD UREA NITROGEN 13 MG/DL (7-18); BUN/CREATININE RATIO 18.8 (6.6-38.0); CALCIUM 8.5 MG/DL (8.5-10.1); CHLORIDE 105 MMOL/L (99-107); CHOL/HDL RATIO 4.4 (0.00-4.99); CHOLESTEROL 182 MG/DL (0-200); CREATININE 0.69 MG/DL (0.40-0.90); GLUCOSE 236 MG/DL (70-104); HDL CHOLESTEROL 41 MG/DL (35-60); LDL CHOLESTEROL 130 MG/DL (50-100); POTASSIUM 3.8 MMOL/L (3.5-5.1); SODIUM 138 MMOL/L (135-145); TOTAL CARBON DIOXIDE 23.9 MMOL/L (24-32); TOTAL PROTEIN 6.6 G/DL (6.4-8.2); TRIGLYCERIDES 69 MG/DL (20-135); eGFR 86 ML/MIN
[2018-03-26 08:00] VITALS: BP 94/46
[2018-03-26] MEDS: nitroGLYCERIN 0.1mg/hour patch TD SCH (08:00)
[2018-03-26] MEDS: heparin, porcine 5000 units/ml vial SQ SCH ×4 (08:00→23:33)
[2018-03-26] MEDS ORDERED: LEVOTHYROXINE SODIUM 100 MCG PO SCH (08:00)
[2018-03-26] MEDS: nicotine 21mg patch - 24 hr TD SCH (08:00)
[2018-03-26] MEDS ORDERED: ASPIRIN 1 MG PO SCH (08:00)
[2018-03-26] MEDS: levoFLOXACIN-Levaquin 500mg/D5 100 ML IV SCH (09:17)
[2018-03-26] MEDS: methylPREDNISolone sod succ 125mg/2ml vial IV SCH ×2 (09:20→20:15)
[2018-03-26] MEDS: levoTHYROXINE 100mcg tablet PO SCH (09:20)
[2018-03-26] MEDS: citalopram 20mg tablet PO SCH ×2 (09:21→20:15)
[2018-03-26] MEDS: docusate sod 100mg capsule PO SCH ×2 (09:21→20:20)
[2018-03-26] MEDS: carVEDilol 12.5mg tablet PO SCH ×2 (09:22→20:16)
[2018-03-26] MEDS: venlafaxine 25mg tablet PO SCH ×3 (09:22→20:19)
[2018-03-26] MEDS: pantoprazole 40mg Tablet.DR PO SCH ×2 (09:23→20:16)
[2018-03-26] MEDS: atorvastatin 20mg tablet PO SCH (09:23)
[2018-03-26] MEDS: gabapentin 300mg capsule PO SCH ×3 (09:23→20:16)
[2018-03-26] MEDS: lisinopril 10 MG tablet PO SCH (09:24)
[2018-03-26] MEDS: aspirin 325mg tablet PO SCH (09:24)
[2018-03-26 09:30] VITALS: BP 149/56
[2018-03-26 11:50] VITALS: BP 105/60
[2018-03-26 20:00] VITALS: BP 120/59
[2018-03-26] MEDS: famotidine 20mg tablet PO SCH (20:16)
[2018-03-26 23:30] VITALS: BP 143/74
[2018-03-27] MEDS: HYDROcodone/acetaminophen 10/325mg tab PO PRN ×2 (00:37→08:55)
[2018-03-27 06:17] LABS: BASOPHILS % (AUTO) 0 % (0-1); EOSINOPHILS # (AUTO) 0.2 X10'3 (0-0.9); EOSINOPHILS % (AUTO) 1.3 % (0-6); HEMATOCRIT 37.9 % (35.0-45.0); HEMOGLOBIN 12.5 g/dl (12.0-16.0); LYMPHOCYTES # (AUTO) 1.6 X10'3 (1.1-4.8); LYMPHOCYTES % (AUTO) 9.8 % (21-51); MEAN CORPUSCULAR HEMOGLOBIN 29.3 PG (27.0-31.0); MEAN CORPUSCULAR HGB CONC 33.1 % (33.0-36.5); MEAN CORPUSCULAR VOLUME 88.6 FL (78-98); MEAN PLATELET VOLUME 8.6 FL (7.4-10.4); MONOCYTES # (AUTO) 0.4 X10'3 (0-0.9); MONOCYTES % (AUTO) 2.6 % (2-12); NEUTROPHILS # (AUTO) 13.7 X10'3 (1.8-7.7); NEUTROPHILS % (AUTO) 86.3 % (42-75); PLATELET COUNT 244 X10'3 (140-440); RED BLOOD COUNT 4.28 X10'6 (4.20-5.60); RED CELL DISTRIBUTION WIDTH 14.3 % (11.5-14.5); WHITE BLOOD COUNT 15.9 X10'3 (4.5-11.0)
[2018-03-27 06:48] LABS: ALANINE AMINOTRANSFERASE 37 U/L (12-78); ALBUMIN 2.7 G/DL (3.4-5.0); ALBUMIN/GLOBULIN RATIO 0.7 (1.1-1.5); ALKALINE PHOSPHATASE 104 IU/L (46-116); ANION GAP 7 (8-16); ASPARTATE AMINO TRANSFERASE 18 U/L (10-37); BILIRUBIN,TOTAL 0.2 MG/DL (0.1-1.0); BLOOD UREA NITROGEN 15 MG/DL (7-18); BUN/CREATININE RATIO 19.2 (6.6-38.0); CHLORIDE 105 MMOL/L (99-107); CREATININE 0.78 MG/DL (0.40-0.90); GLUCOSE 257 MG/DL (70-104); POTASSIUM 3.9 MMOL/L (3.5-5.1); SODIUM 138 MMOL/L (135-145); TOTAL CARBON DIOXIDE 25.7 MMOL/L (24-32); TOTAL PROTEIN 6.6 G/DL (6.4-8.2); eGFR 74 ML/MIN
[2018-03-27 07:00] VITALS: BP 140/78
[2018-03-27] MEDS: acetaminophen 325mg tablet PO PRN (07:07)
[2018-03-27] MEDS: levoTHYROXINE 100mcg tablet PO SCH (07:07)
[2018-03-27] MEDS: nitroGLYCERIN 0.1mg/hour patch TD SCH (08:00)
[2018-03-27] MEDS: nicotine 21mg patch - 24 hr TD SCH (08:00)
[2018-03-27] MEDS: heparin, porcine 5000 units/ml vial SQ SCH ×2 (08:55→16:00)
[2018-03-27] MEDS: levoFLOXACIN-Levaquin 500mg/D5 100 ML IV SCH (08:56)
[2018-03-27] MEDS: methylPREDNISolone sod succ 125mg/2ml vial IV SCH (08:59)
[2018-03-27] MEDS: citalopram 20mg tablet PO SCH (09:03)
[2018-03-27] MEDS: carVEDilol 12.5mg tablet PO SCH (09:03)
[2018-03-27] MEDS: docusate sod 100mg capsule PO SCH (09:03)
[2018-03-27] MEDS: venlafaxine 25mg tablet PO SCH ×2 (09:04→13:29)
[2018-03-27] MEDS: pantoprazole 40mg Tablet.DR PO SCH (09:04)
[2018-03-27] MEDS: lisinopril 10 MG tablet PO SCH (09:04)
[2018-03-27] MEDS: gabapentin 300mg capsule PO SCH ×2 (09:04→13:29)
[2018-03-27] MEDS: aspirin 325mg tablet PO SCH (09:08)
[2018-03-27] MEDS ORDERED: isosorbide mononitrate 30mg tab.SR.24H PO ONE (10:20)
[2018-03-27] MEDS ORDERED: CefTRIAXone/D5W-Rocephin 1gm 50 ML IV SCH (10:25)
[2018-03-27] MEDS: normal saline 1000ml 1,000 ML IV SCH (10:42)
[2018-03-27 11:42] VITALS: BP 142/74
[2018-03-27] MEDS ORDERED: dextrose 50%-water 50ml dispensing syringe IV PRN ×2 (13:00)
[2018-03-27] MEDS ORDERED: MESSAGE TO PHARMACY PO ONE (13:00)
[2018-03-27] MEDS ORDERED: insulin Lispro (HumaLOG) vial - multi-dose SQ SCH (13:00)
[2018-03-27] MEDS ORDERED: glucagon, human recombinant 1mg kit SUBCUT PRN (13:00)
[2018-03-27] MEDS ORDERED: dextrose ORAL solution 15 GM/59 ML bottle PO PRN ×2 (13:00)
[2018-03-27] MEDS ORDERED: METF-950 PO (14:11)
[2018-03-27] MEDS ORDERED: PRED20TA PO (14:11)
[2018-03-27] MEDS ORDERED: SAXA5TAB PO (14:11)
[2018-03-27] MEDS ORDERED: BUDE10.22 INH (14:11)
[2018-03-27] MEDS ORDERED: ALBU8.5H8 INH (14:11)
[2018-03-27] MEDS ORDERED: SYN0.088T PO (14:11)
[2018-03-27] MEDS ORDERED: ATOR20TA66 PO (14:11)
[2018-03-27] MEDS ORDERED: NITR0.4T51 SL (14:11)
[2018-03-27] MEDS ORDERED: LISI10TA4 PO (14:11)
[2018-03-27] MEDS ORDERED: NICO-687 TD (14:11)
[2018-03-27] MEDS ORDERED: ISOS30TA6 PO (14:11)
[2018-03-27] MEDS ORDERED: CEPH250T PO (14:11)
[2018-03-27] MEDS ORDERED: methylPREDNISolone sod succ 125mg/2ml vial IV SCH (20:00)
[2018-03-27] MEDS ORDERED: insulin glargine (Lantus) pen - multi-dose SQ SCH (21:00)
[2018-03-28] MEDS ORDERED: isosorbide mononitrate 30mg tab.SR.24H PO SCH (08:00)
[2018-03-28] MEDS ORDERED: atorvastatin 20mg tablet PO SCH (08:00)
== END 2018-03-27 16:18 | disposition home health service (06) | DRG 243 ==
LOC: ER 22:22 → ED HOLD 03-25 00:10 → SUR 3N 03-25 01:35
PROVIDERS: ADMIT Family Medicine; ATTEND Family Medicine
PROC: 4A02XM4 Measurement of Cardiac Total Activity, External Approach (ICD-10-PCS; principal; 2018-03-25)
PROC: 3E033HZ Introduction of Radioactive Substance into Peripheral Vein, Percutaneous Approach (ICD-10-PCS; 2018-03-25)
DX: K21.9 Gastro-esophageal reflux disease without esophagitis (principal); I85.00 Esophageal varices without bleeding; J44.1 Chronic obstructive pulmonary disease with (acute) exacerbation; I48.0 Paroxysmal atrial fibrillation; N39.0 Urinary tract infection, site not specified; E11.9 Type 2 diabetes mellitus without complications; B96.20 Unspecified Escherichia coli [E. coli] as the cause of diseases classified elsewhere; E66.9 Obesity, unspecified; E78.00 Pure hypercholesterolemia, unspecified; F17.210 Nicotine dependence, cigarettes, uncomplicated; F10.21 Alcohol dependence, in remission; E89.0 Postprocedural hypothyroidism; E78.5 Hyperlipidemia, unspecified; F32.9 Major depressive disorder, single episode, unspecified; F41.0 Panic disorder [episodic paroxysmal anxiety]; I10 Essential (primary) hypertension; I25.10 Atherosclerotic heart disease of native coronary artery without angina pectoris; I25.2 Old myocardial infarction; M19.90 Unspecified osteoarthritis, unspecified site; Z96.612 Presence of left artificial shoulder joint; Z96.653 Presence of artificial knee joint, bilateral; Z88.2 Allergy status to sulfonamides; Z79.82 Long term (current) use of aspirin; Z82.49 Family history of ischemic heart disease and other diseases of the circulatory system; Z87.11 Personal history of peptic ulcer disease; Z95.5 Presence of coronary angioplasty implant and graft; Z79.899 Other long term (current) drug therapy; Z83.3 Family history of diabetes mellitus
CPT/HCPCS: 36415; 71045; 71250; 78452; 80053; 80061; 80305; 81001; 83036; 83735; 83880; 84100; 84443; 84484; 85025; 85379; 85610; 85730; 87070; 87077; 87088; 87186; 93005; 93017; 94760; 99285; A9500; G0378; J0280; J0696; J1644; J1815; J1956; J2270; J2930; J7030

== ENCOUNTER 2018-06-25 18:50 | Inpatient (IN) | payer MEDICAID | END 2018-06-27 16:40 | disposition home health service (06) | LOC: ED HOLD 06-26 00:05 → ER 18:50 → PCU 3S 06-26 07:15 ==

== ENCOUNTER 2018-09-14 00:21 | Emergency (ER) | payer MEDICAID ==
[~2018-09-14] VITALS: Ht 167.6 cm; Wt 100.0 kg
[~2018-09-14 00:21] MED LIST changes: -ALLO100T PO; +ATOR20TA66 PO; +BUDE10.22 INH; -CLON-527 PO; -DILT30TA5 PO; +GABA-532 PO; -HYDR-4353 PO; -LEVO50TA PO; +NITR0.4T51 SL; -NYST30CR2 TP
[2018-09-14] MEDS ORDERED: LEVO175T7 PO (01:11)
[2018-09-14] MEDS ORDERED: DILT180C87 PO (01:11)
[2018-09-14] MEDS ORDERED: CHLO25CA10 PO (01:11)
[2018-09-14] MEDS ORDERED: PRAV20TA4 PO (01:11)
[2018-09-14] MEDS ORDERED: FOLI1TAB16 PO (01:11)
[2018-09-14] MEDS ORDERED: DOCU-267 PO (01:11)
[2018-09-14 01:13] LABS: BASOPHILS # (AUTO) 0.1 X10'3 (0-0.2); BASOPHILS % (AUTO) 1.2 % (0-1); EOSINOPHILS # (AUTO) 0.4 X10'3 (0-0.9); EOSINOPHILS % (AUTO) 3.5 % (0-6); HEMATOCRIT 38.2 % (35.0-45.0); HEMOGLOBIN 12.9 g/dl (12.0-16.0); LYMPHOCYTES # (AUTO) 4.4 X10'3 (1.1-4.8); LYMPHOCYTES % (AUTO) 39.1 % (21-51); MEAN CORPUSCULAR HEMOGLOBIN 29.8 PG (27.0-31.0); MEAN CORPUSCULAR HGB CONC 33.6 g/dL (33.0-36.5); MEAN CORPUSCULAR VOLUME 88.6 FL (78-98); MEAN PLATELET VOLUME 7.6 FL (7.4-10.4); MONOCYTES # (AUTO) 0.8 X10'3 (0-0.9); MONOCYTES % (AUTO) 6.7 % (2-12); NEUTROPHILS # (AUTO) 5.6 X10'3 (1.8-7.7); NEUTROPHILS % (AUTO) 49.5 % (42-75); PLATELET COUNT 223 X10'3 (140-440); RED BLOOD COUNT 4.31 X10'6 (4.20-5.60); RED CELL DISTRIBUTION WIDTH 14.6 % (11.5-14.5); WHITE BLOOD COUNT 11.3 X10'3 (4.5-11.0)
[2018-09-14] MEDS ORDERED: LORazepam 0.5 MG tablet PO STA (01:18)
[2018-09-14 01:29] LABS: ALANINE AMINOTRANSFERASE 36 U/L (12-78); ALBUMIN/GLOBULIN RATIO 0.7 (1.1-1.5); ALKALINE PHOSPHATASE 158 IU/L (46-116); ANION GAP 8 (8-16); ASPARTATE AMINO TRANSFERASE 41 U/L (10-37); BILIRUBIN,TOTAL 0.3 MG/DL (0.1-1.0); BLOOD UREA NITROGEN 11 MG/DL (7-18); BUN/CREATININE RATIO 16.9 (6.6-38.0); CALCIUM 8.4 MG/DL (8.5-10.1); CHLORIDE 103 MMOL/L (99-107); CREATININE 0.65 MG/DL (0.40-0.90); ETHANOL 0.108 GM/DL (0.0-0.010); GLUCOSE 123 MG/DL (70-104); POTASSIUM 3.8 MMOL/L (3.5-5.1); SODIUM 138 MMOL/L (135-145); TOTAL PROTEIN 7.3 G/DL (6.4-8.2); eGFR > 90 ML/MIN
--- NOTE | 2018-09-14 02:59 | NUR ---
PT CHANGED INTO [facility] AND TAKEN TO OVERFLOW.
--- NOTE | 2018-09-14 03:23 | NUR ---
Received pt from main ER after pt placed on 1798 due to stating that she felt like she wanted to kill herself. Pt pleasant upon arrival. Flat affect and depressed mood and continues to endorse S.I. Pt given water and juice and pt now laying quietly in bed without complaints.
--- NOTE | 2018-09-14 05:00 | NUR ---
Pt fell asleep soon after arriving to ER Overflow and continues to rest/sleep quietly without distress.
--- NOTE | 2018-09-14 06:30 | NUR ---
Report received from Radhames CRUZ. Patient asleep upon change of shift observation.
[2018-09-14 07:59] LABS: URINE AMPHETAMINE SCREEN NEGATIVE (Neg); URINE BARBITUATE SCREEN NEGATIVE (Neg); URINE BENZODIAZEPINES SCREEN POSITIVE (Neg); URINE CANNABINOID SCREEN NEGATIVE (Neg); URINE COCAINE SCREEN NEGATIVE (Neg); URINE METHADONE SCREEN NEGATIVE (Neg); URINE OPIATE SCREEN NEGATIVE (Neg); URINE PHENCYCLIDINE SCREEN NEGATIVE (Neg)
[2018-09-14] MEDS ORDERED: LORazepam 1 MG tablet PO ONE (08:05)
[2018-09-14] MEDS ORDERED: ibuprofen tablet 400 MG TABLET PO ONE (08:15)
--- NOTE | 2018-09-14 08:30 | NUR ---
Served breakfast. Ate well. Asked for medication for headache and anxiety. Dr. Koroma consulted. Orders given. Medications administered as ordered.
--- NOTE | 2018-09-14 10:30 | NUR ---
Speaking with [facility] worker via telephone. Patient denies SI. States she wants to go home.
--- NOTE | 2018-09-14 11:36 | NUR ---
pt is in bed on right side, no s/s of distress observed
--- NOTE | 2018-09-14 11:45 | NUR ---
Jodie with Behavioral Health here seeing pt, she is recommending DC she will let MD Santo know.
--- NOTE | 2018-09-14 11:57 | NUR ---
[facility] client per request of ED. Client came in last night with an elevated CY c/o anxiety and depression. 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 She states that there are a bunch of things going on at home, "My apartment has been torn apart and redone, the gonzalez repainted", just got a new [employer] worker because her and her last one were not getting along. She likes the new worker and thinks it will work out. She has 50+ hours/month [employer] and has them coming five days a week to help her around the house and take her places. She reports that she has a counselor that she works with at [facility] and sees every other week, her name is Grace. Has a support system of three sons and some grandkids and finds them helpful. States last night "I just couldn't take anymore, I live by myself, it's hard for me to get a long" but denies S/I, wants to live. Reports that she would like to go home because tomorrow is the inspection for her apartment. There are new owners who are going through everyone's apartments and she wants to make sure that she doesn't lose her apartment, this shows future planning. Has HUD that she doesn't want to lose. Recommendation/Plan: Recommend release to home. 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 Let Freda RN know, spoke w/Dr. Koroma and recommended release of patient.
--- NOTE | 2018-09-14 12:30 | NUR ---
Patient discharged per Dr. Koroma. [facility] called for patient. Patient will be going home and follow-up with out-patient appointments.
[2018-09-14 12:48] VITALS: BP 114/54
== END 2018-09-14 12:30 | disposition home or self-care (01) ==
LOC: ER 00:22
DX: F41.9 Anxiety disorder, unspecified (principal); F32.9 Major depressive disorder, single episode, unspecified; R45.851 Suicidal ideations; F10.129 Alcohol abuse with intoxication, unspecified; I25.10 Atherosclerotic heart disease of native coronary artery without angina pectoris; E78.00 Pure hypercholesterolemia, unspecified; I10 Essential (primary) hypertension; I25.2 Old myocardial infarction; F17.200 Nicotine dependence, unspecified, uncomplicated; Z95.5 Presence of coronary angioplasty implant and graft; Z98.51 Tubal ligation status; Z98.890 Other specified postprocedural states; Z79.899 Other long term (current) drug therapy; Z87.11 Personal history of peptic ulcer disease; Z88.2 Allergy status to sulfonamides; Z79.82 Long term (current) use of aspirin; Y90.9 Presence of alcohol in blood, level not specified
CPT/HCPCS: 36415; 80053; 80305; 80320; 85025; 99284; 99285

== ENCOUNTER 2019-08-04 19:28 | Emergency (ER) | payer MEDICARE, MEDICAID ==
[~2019-08-04] VITALS: Ht 167.6 cm; Wt 104.5 kg
[~2019-08-04 19:28] MED LIST changes: -ATOR20TA66 PO; -BUDE10.22 INH; -CARV-50 PO; +CHLO25CA10 PO; +DIGO-20 PO; +DILT180C87 PO; +DOCU-267 PO; +FOLI1TAB16 PO; -GABA-532 PO; +LEVO175T7 PO; -MAG355OR18 PO; -MULT1TAB74 PO; -OMEP20TA5 PO; +PRAV20TA4 PO
[2019-08-04] MEDS ORDERED: HYDROcodone/acetaminophen 5mg/325mg tablet PO ONE (20:30)
--- NOTE | 2019-08-04 20:37 | NUR ---
Pt had been incontinent of stool prior to this RN performing straight cath for urine sample. Pt was raw in the skin folds of her pelvic area and thighs to the point of bleeding. Pt had a lot of pieces of toilet paper stuck to her in the pelvic area. Once pericare was performed, this RN performed a straight cath, which the pt tolerated well. After the straight cath, this RN assisted pt out of bed to stand at bedside to be able to finish cleaning pt and put clean sheets on her bed. Pt tolerated standing and taking a few steps at bedside well. Pt assisted back to bed and given a couple of warm blankets.
[2019-08-04 20:38] LABS: CLARITY,URINE CLOUDY (Clear); COLOR,URINE YELLOW (Yellow); GLUCOSE, URINE NEGATIVE (Neg); KETONES,URINE NEGATIVE (Neg); LEUKOCYTE ESTERASE ,URINE NEGATIVE (Neg); NITRITES, URINE POSITIVE (Neg); OCCULT BLOOD,URINE NEGATIVE (Neg); PROTEIN,URINE >=300 mg/dl (Neg); UROBILINOGEN,URINE 0.2 E.U/dL (0.2-1.0)
[2019-08-04 20:43] LABS: UA COLLECTION TYPE STRAIGHT CATH
[2019-08-04 20:45] LABS: BACTERIA,URINE 3+ /HPF (Neg); RBC,URINE NONE SEEN /HPF (0-2); SQUAMOUS EPITHELIAL CELL,UR FEW /LPF (FEW); WBC,URINE 0-4 /HPF (0-4)
[2019-08-04 21:20] VITALS: BP 113/76
[2019-08-04] MEDS ORDERED: CEPH500C5 PO (21:27)
[2019-08-04] MEDS ORDERED: cephalexin 250mg capsule PO ONE (21:30)
[2019-08-06] MEDS ORDERED: ESOM40CA54 PO (07:12)
== END 2019-08-04 21:34 | disposition home or self-care (01) ==
LOC: ER 19:29
DX: R07.81 Pleurodynia (principal); N39.0 Urinary tract infection, site not specified; I25.10 Atherosclerotic heart disease of native coronary artery without angina pectoris; I10 Essential (primary) hypertension; E78.00 Pure hypercholesterolemia, unspecified; F17.210 Nicotine dependence, cigarettes, uncomplicated; F10.10 Alcohol abuse, uncomplicated; I25.2 Old myocardial infarction; F41.9 Anxiety disorder, unspecified; F32.9 Major depressive disorder, single episode, unspecified; Z98.61 Coronary angioplasty status; Z90.89 Acquired absence of other organs; Z98.51 Tubal ligation status; Z98.890 Other specified postprocedural states; Z86.69 Personal history of other diseases of the nervous system and sense organs; Z60.2 Problems related to living alone; Z88.2 Allergy status to sulfonamides; Z79.82 Long term (current) use of aspirin; Z79.2 Long term (current) use of antibiotics; Z79.899 Other long term (current) drug therapy; W18.11XA Fall from or off toilet without subsequent striking against object, initial encounter; Y93.89 Activity, other specified; Y92.89 Other specified places as the place of occurrence of the external cause; Y99.8 Other external cause status
CPT/HCPCS: 71250; 81001; 99284

== ENCOUNTER 2019-11-09 12:59 | Emergency (ER) | payer MEDICARE, MEDICAID ==
[~2019-11-09] VITALS: Ht 167.6 cm; Wt 102.3 kg
[~2019-11-09 12:59] MED LIST changes: -ASPI-10 PO; +CEPH500C5 PO; -DOCU-267 PO; +ESOM40CA54 PO
[2019-11-09] MEDS ORDERED: LORazepam 2 mg/ml vial IV ONE (13:50)
[2019-11-09 13:51] LABS: BASOPHILS # (AUTO) 0.1 X10'3 (0-0.2); BASOPHILS % (AUTO) 0.5 % (0-1); EOSINOPHILS # (AUTO) 0.2 X10'3 (0-0.9); EOSINOPHILS % (AUTO) 1.2 % (0-6); HEMOGLOBIN 13.4 g/dl (12.0-16.0); LYMPHOCYTES # (AUTO) 2.8 X10'3 (1.1-4.8); LYMPHOCYTES % (AUTO) 20.6 % (21-51); MEAN CORPUSCULAR HEMOGLOBIN 30.3 PG (27.0-31.0); MEAN CORPUSCULAR HGB CONC 33.5 g/dL (33.0-36.5); MEAN CORPUSCULAR VOLUME 90.5 FL (78-98); MEAN PLATELET VOLUME 7.9 FL (7.4-10.4); MONOCYTES % (AUTO) 7.4 % (2-12); NEUTROPHILS # (AUTO) 9.6 X10'3 (1.8-7.7); NEUTROPHILS % (AUTO) 70.3 % (42-75); PLATELET COUNT 291 X10'3 (140-440); RED BLOOD COUNT 4.42 X10'6 (4.20-5.60); RED CELL DISTRIBUTION WIDTH 13.9 % (11.5-14.5); WHITE BLOOD COUNT 13.6 X10'3 (4.5-11.0)
[2019-11-09] MEDS ORDERED: albuterol 2.5 MG/3 ML nebule NEB ONE (14:00)
[2019-11-09 14:11] LABS: ALANINE AMINOTRANSFERASE 18 U/L (12-78); ALBUMIN 2.9 G/DL (3.4-5.0); ALBUMIN/GLOBULIN RATIO 0.5 (1.1-1.5); ALKALINE PHOSPHATASE 118 IU/L (46-116); ANION GAP 8 (8-16); ASPARTATE AMINO TRANSFERASE 34 U/L (10-37); BILIRUBIN,TOTAL 0.8 MG/DL (0.1-1.0); BLOOD UREA NITROGEN 8 MG/DL (7-18); CALCIUM 9.2 MG/DL (8.5-10.1); CHLORIDE 100 MMOL/L (99-107); CREATININE 0.73 MG/DL (0.40-0.90); GLUCOSE 104 MG/DL (70-104); LIPASE 167 U/L (73-393); POTASSIUM 3.5 MMOL/L (3.5-5.1); SODIUM 135 MMOL/L (135-145); TOTAL CARBON DIOXIDE 26.6 MMOL/L (24-32); TOTAL PROTEIN 8.4 G/DL (6.4-8.2); eGFR 80 ML/MIN
[2019-11-09] MEDS ORDERED: HYDR-4383 PO (14:29)
[2019-11-09] MEDS ORDERED: iohexol 300mg/ml 100ml inj. ONE (15:12)
[2019-11-09] MEDS ORDERED: piperacillin/tazo 3.375gm/50ml 50 ML IV ONE (16:30)
[2019-11-09] MEDS ORDERED: ONDA4TAB12 PO (16:31)
[2019-11-09] MEDS ORDERED: AMOX-422 PO (16:31)
[2019-11-09 17:15] LABS: CLARITY,URINE SLIGHTLY CLOUDY (Clear); COLOR,URINE YELLOW (Yellow); GLUCOSE, URINE NEGATIVE (Neg); KETONES,URINE NEGATIVE (Neg); LEUKOCYTE ESTERASE ,URINE SMALL (Neg); NITRITES, URINE POSITIVE (Neg); OCCULT BLOOD,URINE TRACE-INTACT (Neg); PROTEIN,URINE 30 mg/dl (Neg)
[2019-11-09 17:24] LABS: UA COLLECTION TYPE VOIDED
[2019-11-09 17:25] LABS: BACTERIA,URINE 3+ /HPF (Neg); MUCUS STRANDS FEW /LPF (Neg); RBC,URINE 0-2 /HPF (0-2); SQUAMOUS EPITHELIAL CELL,UR MODERATE /LPF (FEW)
--- NOTE | 2019-11-09 17:44 | NUR ---
patient ready to be dc home,caregiver/Xiomara has her house coello,pt doesnt know her number.Called and left an message to Jeffry/son to get caregiver's number.Awaiting for call back.
[2019-11-09] MEDS ORDERED: oxyCODONE/APAP 5-325mg tablet PO ONE (17:45)
--- NOTE | 2019-11-09 17:46 | NUR ---
patient requesting pain med and something for anxiety,Dr. Jovel aware,pt cant have both per MD.
--- NOTE | 2019-11-09 18:00 | NUR ---
no contact information for Xiomara/caregiver per registration.
--- NOTE | 2019-11-09 18:01 | NUR ---
left a message to Jeffry/son again.
--- NOTE | 2019-11-09 18:47 | NUR ---
Called pt's house number and called pt's son number, not able to reach anyone at either residence at this time. Pt states her housekey is with caregiver Xiomara, does not have her phone number.
--- NOTE | 2019-11-09 20:01 | NUR ---
Contacted son, Tk, who agreed to pickup the patient and is leaving now.
[2019-11-09 20:16] VITALS: BP 124/57
== END 2019-11-09 20:21 | disposition home or self-care (01) ==
LOC: ER 13:00
DX: K57.32 Diverticulitis of large intestine without perforation or abscess without bleeding (principal); I25.10 Atherosclerotic heart disease of native coronary artery without angina pectoris; E78.00 Pure hypercholesterolemia, unspecified; I10 Essential (primary) hypertension; I25.2 Old myocardial infarction; F41.9 Anxiety disorder, unspecified; F32.9 Major depressive disorder, single episode, unspecified; Z86.69 Personal history of other diseases of the nervous system and sense organs; Z98.61 Coronary angioplasty status; Z98.51 Tubal ligation status; Z98.890 Other specified postprocedural states; Z88.2 Allergy status to sulfonamides; Z79.899 Other long term (current) drug therapy
CPT/HCPCS: 36415; 71045; 74177; 80053; 81001; 83690; 84145; 85025; 87077; 87088; 87186; 93005; 94640; 96365; 96375; 99285; J2060; J2543; Q9967; 94760

== ENCOUNTER 2019-12-23 18:47 | Emergency (ER) | payer MEDICARE, MEDICAID ==
[~2019-12-23] VITALS: Ht 167.6 cm; Wt 95.5 kg
[~2019-12-23 18:47] MED LIST changes: +HYDR-4383 PO; +ONDA4TAB12 PO
[2019-12-23] MEDS ORDERED: ondansetron 4mg rapidly disintigrating tab PO ONE (19:45)
[2019-12-23] MEDS ORDERED: morphine 4 MG/ML inj SYRINge IM ONE (19:45)
[2019-12-23 19:46] VITALS: BP 115/63
[2019-12-23] MEDS ORDERED: HYDR-4353 PO (20:03)
--- NOTE | 2019-12-23 20:27 | NUR ---
Call out made to son Jeffry. Voice message left, awaiting call back. Pt. also provided a number for her palliative care nurse, but it is a wrong number.
--- NOTE | 2019-12-23 20:55 | NUR ---
Call out placed to alejandro Solano, awaiting call back.
[2019-12-23] MEDS ORDERED: HYDROcodone/acetaminophen 10/325mg tab PO ONE (21:15)
== END 2019-12-23 21:21 | disposition home or self-care (01) ==
LOC: ER 18:47
DX: M25.512 Pain in left shoulder (principal); I25.10 Atherosclerotic heart disease of native coronary artery without angina pectoris; E78.00 Pure hypercholesterolemia, unspecified; I10 Essential (primary) hypertension; I25.2 Old myocardial infarction; F41.9 Anxiety disorder, unspecified; F32.9 Major depressive disorder, single episode, unspecified; Z98.61 Coronary angioplasty status; Z90.89 Acquired absence of other organs; Z98.890 Other specified postprocedural states; Z88.2 Allergy status to sulfonamides; Z79.899 Other long term (current) drug therapy
CPT/HCPCS: 73030; 96372; 99283; J2270

== ENCOUNTER 2020-02-11 15:10 | Emergency (ER) | payer MEDICARE, MEDICAID ==
[~2020-02-11] VITALS: Ht 167.6 cm; Wt 100.0 kg
[2020-02-11 16:28] LABS: BASOPHILS # (AUTO) 0.1 X10'3 (0-0.2); BASOPHILS % (AUTO) 0.7 % (0-1); EOSINOPHILS # (AUTO) 0.4 X10'3 (0-0.9); EOSINOPHILS % (AUTO) 2.9 % (0-6); HEMATOCRIT 37.3 % (35.0-45.0); HEMOGLOBIN 12.7 g/dl (12.0-16.0); LYMPHOCYTES # (AUTO) 3.3 X10'3 (1.1-4.8); LYMPHOCYTES % (AUTO) 27.1 % (21-51); MEAN CORPUSCULAR HEMOGLOBIN 30.1 PG (27.0-31.0); MEAN CORPUSCULAR HGB CONC 34.2 g/dL (33.0-36.5); MEAN CORPUSCULAR VOLUME 88.2 FL (78-98); MEAN PLATELET VOLUME 8.2 FL (7.4-10.4); MONOCYTES # (AUTO) 0.9 X10'3 (0-0.9); MONOCYTES % (AUTO) 7.4 % (2-12); NEUTROPHILS # (AUTO) 7.6 X10'3 (1.8-7.7); NEUTROPHILS % (AUTO) 61.9 % (42-75); PLATELET COUNT 252 X10'3 (140-440); RED BLOOD COUNT 4.22 X10'6 (4.20-5.60); RED CELL DISTRIBUTION WIDTH 13.6 % (11.5-14.5); WHITE BLOOD COUNT 12.3 X10'3 (4.5-11.0)
[2020-02-11 16:43] LABS: ALANINE AMINOTRANSFERASE 16 U/L (12-78); ALBUMIN 2.8 G/DL (3.4-5.0); ALBUMIN/GLOBULIN RATIO 0.5 (1.1-1.5); ALKALINE PHOSPHATASE 114 IU/L (46-116); ANION GAP 6 (8-16); ASPARTATE AMINO TRANSFERASE 19 U/L (10-37); BILIRUBIN,TOTAL 0.5 MG/DL (0.1-1.0); BLOOD UREA NITROGEN 5 MG/DL (7-18); BUN/CREATININE RATIO 6.8 (6.6-38.0); CALCIUM 9.1 MG/DL (8.5-10.1); CHLORIDE 99 MMOL/L (99-107); CREATININE 0.74 MG/DL (0.40-0.90); GLUCOSE 120 MG/DL (70-104); POTASSIUM 3.1 MMOL/L (3.5-5.1); SODIUM 136 MMOL/L (135-145); TOTAL CARBON DIOXIDE 30.6 MMOL/L (24-32); TOTAL PROTEIN 8.2 G/DL (6.4-8.2); eGFR 79 ML/MIN
[2020-02-11] MEDS ORDERED: furosemide 10 MG/1 ML 10ml inj IV ONE (17:05)
[2020-02-11 17:29] VITALS: BP 98/58
[2020-02-11] MEDS ORDERED: potassium Cl 20 mEq SR tablet PO STA (17:31)
--- NOTE | 2020-02-11 17:34 | NUR ---
SPOKE TO [place] LINARES REGARDING PATIENTS VITALS AND LAB: SBP UNDER 100, SpO2 91 % ON ROOM AIR, K=3.1 And lasix ordered. [place] ok with spo2 on ra. new orders placed & discussed with primary RN Deisy
[2020-02-11] MEDS ORDERED: normal saline 1000ML IV soln IVB ONE (17:35)
[2020-02-11] MEDS ORDERED: potassium Cl 10 mEq/100mL bag IV ONE (17:35)
[2020-02-11] MEDS ORDERED: CEPH250T PO (17:54)
== END 2020-02-11 19:21 | disposition home or self-care (01) ==
LOC: ER 15:19
DX: L03.116 Cellulitis of left lower limb (principal); R20.0 Anesthesia of skin; E87.6 Hypokalemia; I87.2 Venous insufficiency (chronic) (peripheral); I25.10 Atherosclerotic heart disease of native coronary artery without angina pectoris; E78.00 Pure hypercholesterolemia, unspecified; I10 Essential (primary) hypertension; I25.2 Old myocardial infarction; F41.9 Anxiety disorder, unspecified; F32.9 Major depressive disorder, single episode, unspecified; F10.10 Alcohol abuse, uncomplicated; Z90.89 Acquired absence of other organs; Z98.51 Tubal ligation status; Z98.890 Other specified postprocedural states; Z60.2 Problems related to living alone; Z88.2 Allergy status to sulfonamides; Z79.899 Other long term (current) drug therapy; Y90.0 Blood alcohol level of less than 20 mg/100 ml
CPT/HCPCS: 36415; 71045; 80053; 83880; 84484; 85025; 93005; 93925; 96365; 96375; 99285; J1940; J3480; J7030

== ENCOUNTER 2020-04-28 23:42 | Emergency (ER) | payer MEDICARE, MEDICAID ==
[~2020-04-28] VITALS: Ht 167.6 cm; Wt 81.8 kg
[2020-04-29] MEDS ORDERED: normal saline 1000ML IV soln IVB ONE (00:30)
[2020-04-29 00:56] LABS: BASOPHILS # (AUTO) 0.1 X10'3 (0-0.2); BASOPHILS % (AUTO) 1.1 % (0-1); EOSINOPHILS # (AUTO) 0.4 X10'3 (0-0.9); EOSINOPHILS % (AUTO) 3.1 % (0-6); HEMOGLOBIN 13.4 g/dl (12.0-16.0); LYMPHOCYTES % (AUTO) 37.5 % (21-51); MEAN CORPUSCULAR HEMOGLOBIN 28.3 PG (27.0-31.0); MEAN CORPUSCULAR HGB CONC 33.4 g/dL (33.0-36.5); MEAN CORPUSCULAR VOLUME 84.6 FL (78-98); MEAN PLATELET VOLUME 7.3 FL (7.4-10.4); MONOCYTES # (AUTO) 0.6 X10'3 (0-0.9); MONOCYTES % (AUTO) 4.8 % (2-12); NEUTROPHILS # (AUTO) 7.1 X10'3 (1.8-7.7); NEUTROPHILS % (AUTO) 53.5 % (42-75); PLATELET COUNT 307 X10'3 (140-440); RED BLOOD COUNT 4.73 X10'6 (4.20-5.60); RED CELL DISTRIBUTION WIDTH 15.8 % (11.5-14.5); WHITE BLOOD COUNT 13.3 X10'3 (4.5-11.0)
[2020-04-29 01:07] LABS: ALANINE AMINOTRANSFERASE 24 U/L (12-78); ALBUMIN/GLOBULIN RATIO 0.6 (1.1-1.5); ALKALINE PHOSPHATASE 126 IU/L (46-116); ANION GAP 10 (8-16); ASPARTATE AMINO TRANSFERASE 26 U/L (10-37); BILIRUBIN,TOTAL 0.4 MG/DL (0.1-1.0); BLOOD UREA NITROGEN 13 MG/DL (7-18); BUN/CREATININE RATIO 19.1 (6.6-38.0); CALCIUM 8.9 MG/DL (8.5-10.1); CHLORIDE 104 MMOL/L (99-107); CREATININE 0.68 MG/DL (0.40-0.90); GLUCOSE 93 MG/DL (70-104); SODIUM 139 MMOL/L (135-145); TOTAL CARBON DIOXIDE 25.5 MMOL/L (24-32); TOTAL PROTEIN 8.1 G/DL (6.4-8.2); eGFR 87 ML/MIN
[2020-04-29 01:16] LABS: ETHANOL 0.167 GM/DL (0.0-0.010)
[2020-04-29 04:16] LABS: CLARITY,URINE SLIGHTLY CLOUDY (Clear); COLOR,URINE YELLOW (Yellow); GLUCOSE, URINE NEGATIVE (Neg); KETONES,URINE NEGATIVE (Neg); LEUKOCYTE ESTERASE ,URINE SMALL (Neg); NITRITES, URINE NEGATIVE (Neg); OCCULT BLOOD,URINE SMALL (Neg); PH,URINE 5.5 (4.8-8.0); PROTEIN,URINE 30 mg/dl (Neg); UROBILINOGEN,URINE 0.2 E.U/dL (0.2-1.0)
[2020-04-29 04:17] LABS: UA COLLECTION TYPE OTHER
[2020-04-29 04:22] LABS: BACTERIA,URINE 2+ /HPF (Neg); SQUAMOUS EPITHELIAL CELL,UR MANY /LPF (FEW); WBC,URINE 0-4 /HPF (0-4)
[2020-04-29 04:35] LABS: URINE AMPHETAMINE SCREEN NEGATIVE (Neg); URINE BARBITUATE SCREEN NEGATIVE (Neg); URINE BENZODIAZEPINES SCREEN NEGATIVE (Neg); URINE CANNABINOID SCREEN POSITIVE (Neg); URINE COCAINE SCREEN NEGATIVE (Neg); URINE METHADONE SCREEN NEGATIVE (Neg); URINE OPIATE SCREEN NEGATIVE (Neg); URINE PHENCYCLIDINE SCREEN NEGATIVE (Neg)
--- NOTE | 2020-04-29 04:40 | NUR ---
PACKET FAXED TO [facility]
[2020-04-29] MEDS ORDERED: nitroGLYCERIN 0.4mg SUBLingual tab SL PRN (05:45)
[2020-04-29] MEDS ORDERED: pantoprazole 40mg Tablet.DR PO SCH (07:30)
[2020-04-29] MEDS ORDERED: chlordiazePOXIDE 25mg capsule PO SCH (08:00)
[2020-04-29] MEDS ORDERED: digoxin 125mcg (0.125mg) tablet PO SCH (08:00)
[2020-04-29] MEDS ORDERED: atorvastatin 10mg tablet PO SCH (08:00)
[2020-04-29] MEDS ORDERED: venlafaxine XR 75mg capsule (Q24H) PO SCH (08:00)
[2020-04-29] MEDS ORDERED: folic acid 1mg tablet PO SCH (08:00)
[2020-04-29] MEDS ORDERED: diltiazem CD 180mg cap (once-daily) PO SCH (08:00)
[2020-04-29] MEDS ORDERED: levoTHYROXINE 175mcg tablet PO SCH (08:00)
[2020-04-29] MEDS ORDERED: citalopram 20mg tablet PO SCH (08:00)
[2020-04-29 09:15] VITALS: BP 149/81
--- NOTE | 2020-04-29 09:25 | NUR ---
GEOLOGY TEACHER CALLED AND STATED WILL CONTACT CAREGIVER
--- NOTE | 2020-04-29 09:33 | NUR ---
ROSALINA JEWELRY DEPARTMENT SUPERVISOR CALLED STATED SPOKE WITH CAREGIVER AND MADE A PLAN FOR PT TO BE SAFELY DC'D HOME.
--- NOTE | 2020-04-29 09:39 | NUR ---
dr lopez at bedside speaking with pt about dc options.
--- NOTE | 2020-04-29 10:14 | NUR ---
PT CHANGED INTO SWEATS AND GIVEN BACK HOME MEDICATIONS. PT AMBULATED TO BATHROOM, NO DISTRESS NOTED. PT GIVEN EXTRA WALKER FROM LOST AND FOUND TO GET INTO HOME.
[2020-04-29] MEDS ORDERED: ondansetron 4mg rapidly disintigrating tab PO ONE (14:00)
== END 2020-04-29 10:53 ==
LOC: ER 23:43
DX: F79 Unspecified intellectual disabilities (principal); F32.9 Major depressive disorder, single episode, unspecified; F10.129 Alcohol abuse with intoxication, unspecified; I25.10 Atherosclerotic heart disease of native coronary artery without angina pectoris; E78.00 Pure hypercholesterolemia, unspecified; I10 Essential (primary) hypertension; I25.2 Old myocardial infarction; Z86.69 Personal history of other diseases of the nervous system and sense organs; Z87.11 Personal history of peptic ulcer disease; Z87.440 Personal history of urinary (tract) infections; Z98.51 Tubal ligation status; Z90.89 Acquired absence of other organs; Z98.890 Other specified postprocedural states; Z72.89 Other problems related to lifestyle; Z60.2 Problems related to living alone; Z88.2 Allergy status to sulfonamides; Z79.2 Long term (current) use of antibiotics; Z79.899 Other long term (current) drug therapy; Y90.0 Blood alcohol level of less than 20 mg/100 ml
CPT/HCPCS: 36415; 80053; 80305; 80320; 81001; 84443; 85025; 96360; 96361; 99285; J7030

== ENCOUNTER 2020-12-20 13:46 | Inpatient (IN) | payer MEDICARE, MEDICAID ==
[~2020-12-20] VITALS: Ht 167.6 cm; Wt 90.9 kg
[~2020-12-20 13:46] MED LIST changes: -CEPH500C5 PO; -HYDR-4383 PO; -ONDA4TAB12 PO
[2020-12-20 18:27] LABS: EOSINOPHILS # (AUTO) 0.2 X10'3 (0-0.9); MEAN CORPUSCULAR HEMOGLOBIN 26.2 PG (27.0-31.0); MEAN PLATELET VOLUME 7.5 FL (7.4-10.4); NEUTROPHILS # (AUTO) 5.9 X10'3 (1.8-7.7); WHITE BLOOD COUNT 9.9 X10'3 (4.5-11.0)
[2020-12-20 18:30] LABS: BASOPHILS % (AUTO) 0.4 % (0-1); EOSINOPHILS % (AUTO) 1.8 % (0-6); HEMATOCRIT 32.2 % (35.0-45.0); HEMOGLOBIN 10.3 g/dl (12.0-16.0); LYMPHOCYTES % (AUTO) 30.5 % (21-51); MEAN CORPUSCULAR HGB CONC 32.1 g/dL (33.0-36.5); MEAN CORPUSCULAR VOLUME 81.6 FL (78-98); MONOCYTES # (AUTO) 0.8 X10'3 (0-0.9); MONOCYTES % (AUTO) 7.6 % (2-12); NEUTROPHILS % (AUTO) 59.7 % (42-75); PLATELET COUNT 294 X10'3 (140-440); RED BLOOD COUNT 3.94 X10'6 (4.20-5.60)
[2020-12-20 18:40] LABS: CLARITY,URINE SLIGHTLY CLOUDY (Clear); COLOR,URINE YELLOW (Yellow); GLUCOSE, URINE NEGATIVE (Neg); KETONES,URINE NEGATIVE (Neg); LEUKOCYTE ESTERASE ,URINE MODERATE (Neg); NITRITES, URINE POSITIVE (Neg); OCCULT BLOOD,URINE NEGATIVE (Neg); PH,URINE 6.5 (4.8-8.0); PROTEIN,URINE NEGATIVE (Neg); UROBILINOGEN,URINE 0.2 E.U/dL (0.2-1.0)
[2020-12-20 18:44] LABS: ALANINE AMINOTRANSFERASE 13 U/L (12-78); ALBUMIN 2.6 G/DL (3.4-5.0); ALBUMIN/GLOBULIN RATIO 0.5 (1.1-1.5); ALKALINE PHOSPHATASE 150 IU/L (46-116); ANION GAP 4 (8-16); ASPARTATE AMINO TRANSFERASE 10 U/L (10-37); BILIRUBIN,TOTAL 0.3 MG/DL (0.1-1.0); BLOOD UREA NITROGEN 6 MG/DL (7-18); BUN/CREATININE RATIO 9.1 (6.6-38.0); CALCIUM 8.8 MG/DL (8.5-10.1); CHLORIDE 101 MMOL/L (99-107); CREATININE 0.66 MG/DL (0.40-0.90); GLUCOSE 107 MG/DL (70-104); POTASSIUM 3.2 MMOL/L (3.5-5.1); SODIUM 138 MMOL/L (135-145); TOTAL CARBON DIOXIDE 32.6 MMOL/L (24-32); TOTAL PROTEIN 7.4 G/DL (6.4-8.2); eGFR 89 ML/MIN
[2020-12-20 18:49] LABS: UA COLLECTION TYPE CLN CATCH MIDSTREAM
[2020-12-20 18:52] LABS: WBC,URINE 20-30 /HPF (0-4)
[2020-12-20 18:53] LABS: BACTERIA,URINE 4+ /HPF (Neg); MUCUS STRANDS NONE SEEN /LPF (Neg); RBC,URINE 0-2 /HPF (0-2); SQUAMOUS EPITHELIAL CELL,UR MODERATE /LPF (FEW)
[2020-12-20] MEDS ORDERED: ketorolac trometh. 30mg/ml inj. IV ONE (18:55)
[2020-12-20] MEDS ORDERED: HYDROcodone/acetaminophen 5mg/325mg tablet PO ONE (18:55)
[2020-12-20] MEDS ORDERED: CefTRIAXone/D5W-Rocephin 1gm 50 ML IV ONE (19:00)
[2020-12-20] MEDS ORDERED: temazepam 15mg capsule PO PRN (21:00)
[2020-12-20] MEDS ORDERED: HYDROmorphone inj. 0.5 MG/0.5 ML DISP.SYRIN IV ONE (21:10)
[2020-12-20] MEDS ORDERED: RIVA20TA PO (22:28)
[2020-12-20] MEDS ORDERED: FURO-149 PO (22:28)
[2020-12-20] MEDS ORDERED: HYDR-3972 (22:28)
[2020-12-20] MEDS ORDERED: POTA20TA19 PO (22:28)
[2020-12-20] MEDS ORDERED: QUET25TA36 PO (22:28)
[2020-12-20] MEDS ORDERED: DIGO250T PO (22:28)
[2020-12-20] MEDS ORDERED: DOCU-22 PO (22:28)
[2020-12-20] MEDS ORDERED: ATOR10TA70 PO (22:28)
[2020-12-20] MEDS ORDERED: OXYC15TA (22:28)
[2020-12-20] MEDS ORDERED: acetaminophen 325mg tablet PO PRN ×2 (23:00)
[2020-12-20] MEDS ORDERED: potassium Cl 20 mEq SR tablet PO PRN ×2 (23:00)
[2020-12-20] MEDS ORDERED: HYDROcodone/acetaminophen 5mg/325mg tablet PO PRN (23:00)
[2020-12-20] MEDS ORDERED: diphenhydrAMINE 25mg capsule PO PRN (23:00)
[2020-12-20] MEDS ORDERED: mag hydrox/Alum hydrox/simeth 30ml oral suspension PO PRN (23:00)
[2020-12-20] MEDS ORDERED: morphine 2 MG/ML inj. syringe IV PRN (23:00)
[2020-12-20] MEDS ORDERED: potassium Cl 40MEQ/1/2NS 520ml 520 ML IV PRN ×2 (23:00)
[2020-12-20] MEDS ORDERED: magnesium hydroxide 30ml (MOM) UD suspension PO PRN (23:00)
[2020-12-20] MEDS ORDERED: acetaminophen 650mg rectal suppository RC PRN (23:00)
[2020-12-20] MEDS ORDERED: bisacodyl 10mg suppository rectal RC PRN (23:00)
[2020-12-20] MEDS ORDERED: diphenhydrAMINE 50 mg/ml inj IV PRN (23:00)
[2020-12-20 23:42] LABS: PARTIAL THROMBOPLASTIN TIME 31 SECONDS (22-32)
[2020-12-20] MEDS: potassium Cl 20mEq in NS 1,000 ML IV SCH (23:45)
[2020-12-20 23:52] LABS: MAGNESIUM 1.9 MG/DL (1.5-2.4); PHOSPHORUS 4.2 MG/DL (2.3-4.5); TROPONIN I < 0.04 NG/ML (0.0-0.05)
[2020-12-21] MEDS: HYDROcodone/acetaminophen 10/325mg tab PO PRN ×3 (03:00→14:53)
--- NOTE | 2020-12-21 06:59 | NUR ---
RECEIVED REPORT FROM RN IN ER. PT GOING TO [id number]
[2020-12-21 07:48] VITALS: BP 152/78
[2020-12-21] MEDS: K and/or MAG REPLACEMENT MC SCH ×2 (08:00→19:53)
[2020-12-21 08:25] LABS: BASOPHILS # (AUTO) 0.1 X10'3 (0-0.2); BASOPHILS % (AUTO) 0.7 % (0-1); EOSINOPHILS # (AUTO) 0.2 X10'3 (0-0.9); EOSINOPHILS % (AUTO) 1.9 % (0-6); HEMATOCRIT 32.8 % (35.0-45.0); HEMOGLOBIN 10.5 g/dl (12.0-16.0); LYMPHOCYTES # (AUTO) 2.4 X10'3 (1.1-4.8); MEAN CORPUSCULAR HEMOGLOBIN 26.2 PG (27.0-31.0); MEAN CORPUSCULAR HGB CONC 31.9 g/dL (33.0-36.5); MEAN CORPUSCULAR VOLUME 82.1 FL (78-98); MEAN PLATELET VOLUME 7.6 FL (7.4-10.4); MONOCYTES # (AUTO) 0.6 X10'3 (0-0.9); MONOCYTES % (AUTO) 6.6 % (2-12); NEUTROPHILS # (AUTO) 5.3 X10'3 (1.8-7.7); NEUTROPHILS % (AUTO) 62.8 % (42-75); PLATELET COUNT 281 X10'3 (140-440); RED BLOOD COUNT 3.99 X10'6 (4.20-5.60); RED CELL DISTRIBUTION WIDTH 14.9 % (11.5-14.5); WHITE BLOOD COUNT 8.5 X10'3 (4.5-11.0)
[2020-12-21 08:33] LABS: ALANINE AMINOTRANSFERASE 10 U/L (12-78); ALBUMIN 2.4 G/DL (3.4-5.0); ALBUMIN/GLOBULIN RATIO 0.5 (1.1-1.5); ALKALINE PHOSPHATASE 146 IU/L (46-116); ANION GAP 7 (8-16); ASPARTATE AMINO TRANSFERASE 14 U/L (10-37); BILIRUBIN,TOTAL 0.3 MG/DL (0.1-1.0); BLOOD UREA NITROGEN 7 MG/DL (7-18); BUN/CREATININE RATIO 11.3 (6.6-38.0); CALCIUM 8.6 MG/DL (8.5-10.1); CHLORIDE 104 MMOL/L (99-107); CREATININE 0.62 MG/DL (0.40-0.90); GLUCOSE 99 MG/DL (70-104); POTASSIUM 3.3 MMOL/L (3.5-5.1); SODIUM 142 MMOL/L (135-145); TOTAL PROTEIN 7.2 G/DL (6.4-8.2); eGFR > 90 ML/MIN
[2020-12-21] MEDS: potassium Cl 20mEq in NS 1,000 ML IV SCH ×2 (09:00→21:28)
[2020-12-21] MEDS: pantoprazole 40mg Tablet.DR PO SCH (09:18)
[2020-12-21] MEDS: levoTHYROXINE 175mcg tablet PO SCH (09:18)
[2020-12-21] MEDS: digoxin 125mcg (0.125mg) tablet PO SCH (09:19)
[2020-12-21] MEDS: venlafaxine XR 75mg capsule (Q24H) PO SCH (09:19)
[2020-12-21] MEDS: diltiazem CD 180mg cap (once-daily) PO SCH (09:19)
[2020-12-21] MEDS: rivaroxaban 20mg tablet PO SCH (09:19)
[2020-12-21] MEDS: docusate sod 100mg capsule PO SCH ×2 (09:19→19:50)
[2020-12-21] MEDS: CefTRIAXone/D5W-Rocephin 1gm 50 ML IV SCH (09:20)
[2020-12-21] MEDS: citalopram 20mg tablet PO SCH ×2 (09:20→19:50)
[2020-12-21] MEDS: HYDROmorphone inj. 0.5 MG/0.5 ML DISP.SYRIN IV PRN ×2 (09:28→13:33)
[2020-12-21 10:00] VITALS: BP 170/82
--- NOTE | 2020-12-21 12:43 | NUR ---
Page Sent PAGER ID: [phone] MESSAGE: MALINDA [phone] RE: TYRESEGarcíaSTEVOLINDAH [id number] PT HAS BEEN COUGHING, CLAIMS HAS HAD COUGH FOR A FEW DAYS. SHE ALSO STARTED RUNNING A LOW-GRADE FEVER OF 99.9. WOULD YOU LIKE TO TEST PT FOR COVID? THANKS!
[2020-12-21] MEDS ORDERED: cloNIDine 0.1 mg tablet PO PRN (13:15)
--- NOTE | 2020-12-21 15:08 | NUR ---
Page Sent PAGER ID: [phone] MESSAGE: MALINDA [phone] RE: YELENA BOX 1995J PT DOES NOT SHOW INDICATION OF C. DIFF, PT HAD SMALL, HARD, FORMED STOOL. ALSO, CAN WE ADVANCE PT'S DIET FROM NPO? THANK YOU!
[2020-12-21] MEDS: oxyCODONE/APAP 5-325mg tablet PO PRN (17:15)
--- NOTE | 2020-12-21 18:46 | NUR ---
Problems reprioritized. Patient report given, questions answered & plan of care reviewed with KATERINE RN.
[2020-12-21 19:00] VITALS: BP 152/83
[2020-12-21] MEDS: morphine 2 MG/ML inj. syringe IV PRN ×2 (19:50→21:43)
[2020-12-21] MEDS: lactobacillus rhamnosus 10,000 MMU CELLS/CAPSULE PO SCH (19:50)
[2020-12-21 21:15] VITALS: BP 148/81
[2020-12-21] MEDS: atorvastatin 10mg tablet PO SCH (21:46)
[2020-12-21] MEDS: QUEtiapine 25mg tablet PO SCH (21:48)
[2020-12-21] MEDS ORDERED: LORazepam 2 mg/ml vial IV PRN (21:55)
[2020-12-21] MEDS: HYDROmorphone 1 mg/ml syringe IV PRN (23:27)
[2020-12-22 00:30] VITALS: BP 130/69
[2020-12-22] MEDS: HYDROmorphone 1 mg/ml syringe IV PRN ×5 (03:05→19:49)
[2020-12-22] MEDS: potassium Cl 20mEq in NS 1,000 ML IV SCH ×3 (05:00→19:47)
[2020-12-22 06:00] VITALS: BP 135/68
--- NOTE | 2020-12-22 06:25 | NUR ---
Patient in room ORTHO 4012A. I have received report from NANCY GARCIAS and had the opportunity to ask questions and assume patient care.
[2020-12-22 06:26] LABS: ALANINE AMINOTRANSFERASE 8 U/L (12-78); ALBUMIN 2.5 G/DL (3.4-5.0); ALBUMIN/GLOBULIN RATIO 0.5 (1.1-1.5); ALKALINE PHOSPHATASE 143 IU/L (46-116); ANION GAP 7 (8-16); ASPARTATE AMINO TRANSFERASE 15 U/L (10-37); BILIRUBIN,TOTAL 0.4 MG/DL (0.1-1.0); BLOOD UREA NITROGEN 6 MG/DL (7-18); BUN/CREATININE RATIO 10.2 (6.6-38.0); CALCIUM 8.8 MG/DL (8.5-10.1); CHLORIDE 106 MMOL/L (99-107); CREATININE 0.59 MG/DL (0.40-0.90); GLUCOSE 96 MG/DL (70-104); POTASSIUM 3.5 MMOL/L (3.5-5.1); SODIUM 140 MMOL/L (135-145); TOTAL CARBON DIOXIDE 27.5 MMOL/L (24-32); TOTAL PROTEIN 7.1 G/DL (6.4-8.2); eGFR > 90 ML/MIN
[2020-12-22 06:37] LABS: BASOPHILS % (AUTO) 0.3 % (0-1); EOSINOPHILS % (AUTO) 0.2 % (0-6); HEMATOCRIT 30.9 % (35.0-45.0); HEMOGLOBIN 10.1 g/dl (12.0-16.0); LYMPHOCYTES # (AUTO) 2.7 X10'3 (1.1-4.8); LYMPHOCYTES % (AUTO) 21.6 % (21-51); MEAN CORPUSCULAR HEMOGLOBIN 26.1 PG (27.0-31.0); MEAN CORPUSCULAR HGB CONC 32.7 g/dL (33.0-36.5); MEAN CORPUSCULAR VOLUME 79.6 FL (78-98); MEAN PLATELET VOLUME 7.5 FL (7.4-10.4); MONOCYTES # (AUTO) 0.7 X10'3 (0-0.9); MONOCYTES % (AUTO) 5.6 % (2-12); NEUTROPHILS # (AUTO) 9.1 X10'3 (1.8-7.7); NEUTROPHILS % (AUTO) 72.3 % (42-75); PLATELET COUNT 289 X10'3 (140-440); RED BLOOD COUNT 3.89 X10'6 (4.20-5.60); WHITE BLOOD COUNT 12.6 X10'3 (4.5-11.0)
[2020-12-22] MEDS: pantoprazole 40mg Tablet.DR PO SCH ×2 (08:00→08:34)
[2020-12-22] MEDS: digoxin 125mcg (0.125mg) tablet PO SCH ×2 (08:00→08:34)
[2020-12-22] MEDS: K and/or MAG REPLACEMENT MC SCH ×2 (08:00→19:40)
[2020-12-22] MEDS: diltiazem CD 180mg cap (once-daily) PO SCH ×2 (08:00→08:34)
[2020-12-22] MEDS: levoTHYROXINE 175mcg tablet PO SCH ×2 (08:00→08:34)
[2020-12-22] MEDS: lactobacillus rhamnosus 10,000 MMU CELLS/CAPSULE PO SCH ×3 (08:00→19:51)
[2020-12-22] MEDS: venlafaxine XR 75mg capsule (Q24H) PO SCH ×2 (08:00→08:33)
[2020-12-22] MEDS: docusate sod 100mg capsule PO SCH ×3 (08:00→19:52)
[2020-12-22] MEDS: citalopram 20mg tablet PO SCH ×3 (08:00→19:52)
[2020-12-22] MEDS: rivaroxaban 20mg tablet PO SCH (08:00)
[2020-12-22] MEDS: CefTRIAXone/D5W-Rocephin 1gm 50 ML IV SCH (08:29)
[2020-12-22] MEDS: HYDROcodone/acetaminophen 10/325mg tab PO PRN ×3 (09:25→22:45)
[2020-12-22 10:00] VITALS: BP 148/83
[2020-12-22 18:00] VITALS: BP 149/74
--- NOTE | 2020-12-22 18:33 | NUR ---
Problems reprioritized. Patient report given, questions answered & plan of care reviewed with NANCY CASTILLO.
[2020-12-22] MEDS: atorvastatin 10mg tablet PO SCH (20:08)
[2020-12-22] MEDS: QUEtiapine 25mg tablet PO SCH (20:08)
--- NOTE | 2020-12-22 23:01 | NUR ---
PT SAYS HER ENTIRE R LEG IS CRAMPING AND PAINFUL. CALLED DR SELF WHO ORDERED 1MG ATIVAN Q 6PRN.
[2020-12-22] MEDS: LORazepam 2 mg/ml vial IV PRN (23:10)
[2020-12-23 01:00] VITALS: BP 139/77
[2020-12-23] MEDS: HYDROmorphone 1 mg/ml syringe IV PRN ×6 (03:02→22:04)
[2020-12-23 05:43] LABS: BASOPHILS # (AUTO) 0.1 X10'3 (0-0.2); BASOPHILS % (AUTO) 0.5 % (0-1); EOSINOPHILS # (AUTO) 0.1 X10'3 (0-0.9); EOSINOPHILS % (AUTO) 0.9 % (0-6); HEMOGLOBIN 10.8 g/dl (12.0-16.0); LYMPHOCYTES # (AUTO) 2.9 X10'3 (1.1-4.8); LYMPHOCYTES % (AUTO) 23.6 % (21-51); MEAN CORPUSCULAR HEMOGLOBIN 25.6 PG (27.0-31.0); MEAN CORPUSCULAR HGB CONC 31.8 g/dL (33.0-36.5); MEAN CORPUSCULAR VOLUME 80.6 FL (78-98); MEAN PLATELET VOLUME 7.2 FL (7.4-10.4); NEUTROPHILS # (AUTO) 8.4 X10'3 (1.8-7.7); PLATELET COUNT 293 X10'3 (140-440); RED BLOOD COUNT 4.23 X10'6 (4.20-5.60); RED CELL DISTRIBUTION WIDTH 15.3 % (11.5-14.5); WHITE BLOOD COUNT 12.5 X10'3 (4.5-11.0)
[2020-12-23] MEDS: potassium Cl 20mEq in NS 1,000 ML IV SCH ×2 (05:43→16:51)
[2020-12-23] MEDS: HYDROcodone/acetaminophen 10/325mg tab PO PRN ×2 (05:43→09:42)
[2020-12-23 06:05] LABS: ALANINE AMINOTRANSFERASE 13 U/L (12-78); ALBUMIN 2.5 G/DL (3.4-5.0); ALBUMIN/GLOBULIN RATIO 0.6 (1.1-1.5); ALKALINE PHOSPHATASE 133 IU/L (46-116); ANION GAP 9 (8-16); ASPARTATE AMINO TRANSFERASE 13 U/L (10-37); BILIRUBIN,TOTAL 0.3 MG/DL (0.1-1.0); BLOOD UREA NITROGEN 9 MG/DL (7-18); BUN/CREATININE RATIO 14.8 (6.6-38.0); CALCIUM 8.6 MG/DL (8.5-10.1); CHLORIDE 104 MMOL/L (99-107); CREATININE 0.61 MG/DL (0.40-0.90); GLUCOSE 79 MG/DL (70-104); POTASSIUM 3.9 MMOL/L (3.5-5.1); SODIUM 136 MMOL/L (135-145); TOTAL CARBON DIOXIDE 22.8 MMOL/L (24-32); eGFR > 90 ML/MIN
--- NOTE | 2020-12-23 06:24 | NUR ---
Patient in room ORTHO 4012. I have received report from Elida CRUZ and had the opportunity to ask questions and assume patient care.
--- NOTE | 2020-12-23 07:00 | NUR ---
Problems reprioritized. Patient report given, questions answered & plan of care reviewed with Anya CRUZ.
--- NOTE | 2020-12-23 07:54 | NUR ---
scanner on computer not scanning meds into [facility], checked med prior to admin
[2020-12-23] MEDS: lactobacillus rhamnosus 10,000 MMU CELLS/CAPSULE PO SCH ×2 (08:00→20:53)
[2020-12-23] MEDS: venlafaxine XR 75mg capsule (Q24H) PO SCH (08:00)
[2020-12-23] MEDS: citalopram 20mg tablet PO SCH ×2 (08:00→20:53)
[2020-12-23] MEDS: K and/or MAG REPLACEMENT MC SCH ×2 (08:00→20:00)
[2020-12-23] MEDS: pantoprazole 40mg Tablet.DR PO SCH (08:00)
[2020-12-23] MEDS: digoxin 125mcg (0.125mg) tablet PO SCH (08:00)
[2020-12-23] MEDS: diltiazem CD 180mg cap (once-daily) PO SCH (08:00)
[2020-12-23] MEDS: levoTHYROXINE 175mcg tablet PO SCH (08:00)
[2020-12-23] MEDS: rivaroxaban 20mg tablet PO SCH (08:00)
[2020-12-23] MEDS: docusate sod 100mg capsule PO SCH ×2 (08:00→20:53)
[2020-12-23] MEDS: CefTRIAXone/D5W-Rocephin 1gm 50 ML IV SCH (08:41)
[2020-12-23] MEDS: ondansetron/PF 4mg/2ml inj IV PRN (10:35)
--- NOTE | 2020-12-23 16:34 | NUR ---
PAGER ID: [phone] MESSAGE: Need more pain medication for Velvet Oly. 353. Cross consulted. Anya [phone]
[2020-12-23] MEDS: oxyCODONE/APAP 10/325mg tablet PO PRN ×2 (16:49→20:53)
--- NOTE | 2020-12-23 16:55 | NUR ---
PAGER ID: [phone] MESSAGE: Velvet Oyl 353 Pt. has wet cough. LS wet crackles to apex, rhonchi. CXR? DC fluids? Lasix? Anya [phone]
[2020-12-23] MEDS ORDERED: furosemide 40mg/4ml inj IV ONE (17:00)
[2020-12-23 17:07] VITALS: BP 149/80
[2020-12-23 18:00] VITALS: BP 149/72
[2020-12-23] MEDS ORDERED: ringers solution, lacted 1,000 ML IV ONE (18:30)
--- NOTE | 2020-12-23 18:43 | NUR ---
Patient in room 353. I have received report from NANCY Joyner and had the opportunity to ask questions and assume patient care.
--- NOTE | 2020-12-23 18:46 | NUR ---
Report given to Loretta CRUZ.
[2020-12-23] MEDS: QUEtiapine 25mg tablet PO SCH (20:54)
[2020-12-23] MEDS: atorvastatin 10mg tablet PO SCH (20:54)
[2020-12-24] VITALS (21 sets, daily range): BP systolic 106–154; BP diastolic 55–88
[2020-12-24] MEDS: HYDROmorphone 1 mg/ml syringe IV PRN ×6 (01:23→22:24)
[2020-12-24 06:05] LABS: BASOPHILS # (AUTO) 0.1 X10'3 (0-0.2); BASOPHILS % (AUTO) 0.5 % (0-1); EOSINOPHILS # (AUTO) 0.2 X10'3 (0-0.9); EOSINOPHILS % (AUTO) 1.6 % (0-6); HEMATOCRIT 34.2 % (35.0-45.0); LYMPHOCYTES # (AUTO) 2.9 X10'3 (1.1-4.8); LYMPHOCYTES % (AUTO) 23.5 % (21-51); MEAN CORPUSCULAR HEMOGLOBIN 25.7 PG (27.0-31.0); MEAN CORPUSCULAR HGB CONC 32.1 g/dL (33.0-36.5); MEAN PLATELET VOLUME 7.2 FL (7.4-10.4); MONOCYTES # (AUTO) 0.9 X10'3 (0-0.9); MONOCYTES % (AUTO) 7.6 % (2-12); NEUTROPHILS # (AUTO) 8.3 X10'3 (1.8-7.7); NEUTROPHILS % (AUTO) 66.8 % (42-75); PLATELET COUNT 292 X10'3 (140-440); RED BLOOD COUNT 4.28 X10'6 (4.20-5.60); RED CELL DISTRIBUTION WIDTH 15.1 % (11.5-14.5); WHITE BLOOD COUNT 12.4 X10'3 (4.5-11.0)
[2020-12-24 06:11] LABS: PARTIAL THROMBOPLASTIN TIME 32 SECONDS (22-32)
[2020-12-24 06:30] LABS: ALANINE AMINOTRANSFERASE 12 U/L (12-78); ALBUMIN 2.5 G/DL (3.4-5.0); ALBUMIN/GLOBULIN RATIO 0.5 (1.1-1.5); ALKALINE PHOSPHATASE 131 IU/L (46-116); ANION GAP 8 (8-16); ASPARTATE AMINO TRANSFERASE 16 U/L (10-37); BILIRUBIN,TOTAL 0.3 MG/DL (0.1-1.0); BLOOD UREA NITROGEN 10 MG/DL (7-18); BUN/CREATININE RATIO 18.9 (6.6-38.0); CALCIUM 8.6 MG/DL (8.5-10.1); CHLORIDE 100 MMOL/L (99-107); CREATININE 0.53 MG/DL (0.40-0.90); GLUCOSE 95 MG/DL (70-104); SODIUM 135 MMOL/L (135-145); TOTAL CARBON DIOXIDE 27.2 MMOL/L (24-32); TOTAL PROTEIN 7.4 G/DL (6.4-8.2); eGFR > 90 ML/MIN
--- NOTE | 2020-12-24 06:30 | NUR ---
Problems reprioritized. Patient report given, questions answered & plan of care reviewed with NANCY Leroy.
--- NOTE | 2020-12-24 06:39 | NUR ---
Patient in room DANIEL 353. I have received report from NANCY Burgos and had the opportunity to ask questions and assume patient care.
[2020-12-24] MEDS: ondansetron/PF 4mg/2ml inj IV PRN ×2 (07:26→15:13)
[2020-12-24] MEDS: morphine 2 MG/ML inj. syringe IV PRN ×2 (07:27→09:22)
[2020-12-24] MEDS: CefTRIAXone/D5W-Rocephin 1gm 50 ML IV SCH (07:29)
[2020-12-24] MEDS ORDERED: morphine 2 MG/ML inj. syringe IV PRN (07:55)
[2020-12-24] MEDS ORDERED: labetalol 20mg/4ml (5mg/ml) syringe IV PRN (07:55)
[2020-12-24] MEDS ORDERED: ringers solution, lacted 1,000 ML IV SCH (07:55)
[2020-12-24] MEDS ORDERED: ondansetron/PF 4mg/2ml inj IV PRN (07:55)
[2020-12-24] MEDS ORDERED: hydrALAZINE 20mg/ml inj. IV PRN (07:55)
[2020-12-24] MEDS ORDERED: fentaNYL/PF 50MCG/1 ML 2ML syringe IV PRN ×2 (07:55)
[2020-12-24] MEDS ORDERED: morphine 4 MG/ML inj SYRINge IV PRN (07:55)
--- NOTE | 2020-12-24 07:56 | NUR ---
Received call from Mireille from lab. Patient has antibodies detected in blood and will take 2 hours to screen. Florencio charge master coordinator from OR notified as patient is going down to OR now.
[2020-12-24] MEDS: rivaroxaban 20mg tablet PO SCH (08:00)
[2020-12-24] MEDS: lactobacillus rhamnosus 10,000 MMU CELLS/CAPSULE PO SCH ×2 (08:00→20:08)
[2020-12-24] MEDS: venlafaxine XR 75mg capsule (Q24H) PO SCH (08:00)
[2020-12-24] MEDS: pantoprazole 40mg Tablet.DR PO SCH (08:00)
[2020-12-24] MEDS: K and/or MAG REPLACEMENT MC SCH ×2 (08:00→20:00)
[2020-12-24] MEDS: digoxin 125mcg (0.125mg) tablet PO SCH (08:00)
[2020-12-24] MEDS: citalopram 20mg tablet PO SCH ×2 (08:00→20:08)
[2020-12-24] MEDS: levoTHYROXINE 175mcg tablet PO SCH (08:00)
[2020-12-24] MEDS: diltiazem CD 180mg cap (once-daily) PO SCH (08:00)
[2020-12-24] MEDS: docusate sod 100mg capsule PO SCH ×2 (08:00→20:08)
--- NOTE | 2020-12-24 08:42 | NUR ---
PAGER ID: [phone] MESSAGE: 353 Velvet Parrish- morphine 2mg q2hrs prn but states ineffective. any new orders? thank you- reinaldo [phone]
--- NOTE | 2020-12-24 11:10 | NUR ---
PATIENT DOWN TO OR
--- NOTE | 2020-12-24 11:10 | NUR ---
CALLED REPORT TO DON ANTONY RN
[2020-12-24] MEDS ORDERED: fentaNYL/PF 50MCG/1 ML 2ML syringe ONE ×2 (11:29→14:12)
[2020-12-24] MEDS ORDERED: etomidate 2mg/ml inj. ONE ×2 (11:29)
[2020-12-24] MEDS ORDERED: midazolam 1 mg/ML 2ml injection ONE (11:29)
[2020-12-24] MEDS ORDERED: ondansetron/PF 4mg/2ml inj ONE (11:30)
[2020-12-24] MEDS ORDERED: sevoflurane 250ml liquid IH ONE (11:30)
[2020-12-24] MEDS ORDERED: dexamethasone sod phosphate 10mg/ml inj ONE (11:30)
[2020-12-24] MEDS ORDERED: ePHEDrine 50MG/ML INJ. ONE (12:15)
[2020-12-24] MEDS ORDERED: ROPIVAcaine 0.5% (5mg/ml) 30ml vial ONE ×3 (12:22→14:25)
[2020-12-24] MEDS ORDERED: albumin (Human) 5% 250ml 250 ML IV ONE ×3 (12:23→13:02)
[2020-12-24] MEDS ORDERED: rocuronium 10mg/ml inj IV ONE (12:31)
[2020-12-24] MEDS ORDERED: vancomycin 1,000mg inj ONE (14:14)
[2020-12-24] MEDS ORDERED: neostigmine methylsulfate 1 MG/ML 10ml vial ONE (14:24)
[2020-12-24] MEDS ORDERED: glycopyrrolate 0.2mg/ml inj ONE (14:24)
--- NOTE | 2020-12-24 14:55 | NUR ---
Received from OR via , accompanied by Anesthesiologist and report given by Anesthesiolgist. PATIENT A&OX4, DENIES PAIN, V/S WNL, SCD ON , PIV 22G RUE AND 18G LUE,DRESSING TO RIGHT HIP CDI . F/C DRAINING CLEAR YELLOW URINE.
--- NOTE | 2020-12-24 15:10 | NUR ---
Received report from NANCY Arechiga. Awaiting patient arrival back to room 353.
--- NOTE | 2020-12-24 15:15 | NUR ---
Wound care POC. Arrived at bedside for assessment due to low luis daniel score. Pt gone to OR. Will follow up if patient remains low luis daniel.
--- NOTE | 2020-12-24 15:55 | NUR ---
P ATIENT A&OX4, DENIES PAIN, V/S WNL, SCD ON , PIV 22G RUE AND 18G LUE,DRESSING TO RIGHT HIP CDI . F/C DRAINING CLEAR YELLOW URINE.TAKEN TO 353 WITH ALL BELONGINGS AND HOOKED UP TO MONITORS IN ROOM AND REPORT GIVEN TO RN WHO HAS TAKEN OVER PATIENT CARE.
--- NOTE | 2020-12-24 16:31 | NUR ---
Received patient back to room 353. Patient sleepy, no complaints. Post op vitals initiated, VSS. Right hip dressing small shadowing otherwise CDI.
[2020-12-24 16:33] LABS: BASOPHILS # (AUTO) 0.1 X10'3 (0-0.2); BASOPHILS % (AUTO) 0.3 % (0-1); EOSINOPHILS % (AUTO) 0 % (0-6); HEMATOCRIT 28.3 % (35.0-45.0); HEMOGLOBIN 8.9 g/dl (12.0-16.0); LYMPHOCYTES % (AUTO) 4.3 % (21-51); MEAN CORPUSCULAR HEMOGLOBIN 25.3 PG (27.0-31.0); MEAN CORPUSCULAR HGB CONC 31.6 g/dL (33.0-36.5); MEAN CORPUSCULAR VOLUME 80.2 FL (78-98); MONOCYTES # (AUTO) 0.7 X10'3 (0-0.9); MONOCYTES % (AUTO) 3.1 % (2-12); NEUTROPHILS # (AUTO) 21.2 X10'3 (1.8-7.7); NEUTROPHILS % (AUTO) 92.3 % (42-75); PLATELET COUNT 282 X10'3 (140-440); RED BLOOD COUNT 3.52 X10'6 (4.20-5.60)
--- NOTE | 2020-12-24 18:17 | NUR ---
Patient in room DANIEL 353. I have received report from NANCY Leroy and had the opportunity to ask questions and assume patient care.
[2020-12-24] MEDS: QUEtiapine 25mg tablet PO SCH (20:08)
[2020-12-24] MEDS: atorvastatin 10mg tablet PO SCH (20:08)
[2020-12-25] VITALS: BP 96/50
[2020-12-25] MEDS: HYDROmorphone 1 mg/ml syringe IV PRN ×5 (00:38→22:18)
[2020-12-25 04:00] VITALS: BP 110/65
[2020-12-25 06:16] LABS: BASOPHILS # (AUTO) 0.1 X10'3 (0-0.2); BASOPHILS % (AUTO) 0.4 % (0-1); EOSINOPHILS % (AUTO) 0.2 % (0-6); HEMATOCRIT 24.7 % (35.0-45.0); LYMPHOCYTES % (AUTO) 26.6 % (21-51); MEAN CORPUSCULAR HEMOGLOBIN 25.7 PG (27.0-31.0); MEAN CORPUSCULAR HGB CONC 32.5 g/dL (33.0-36.5); MEAN CORPUSCULAR VOLUME 78.9 FL (78-98); MEAN PLATELET VOLUME 7.3 FL (7.4-10.4); MONOCYTES # (AUTO) 1.6 X10'3 (0-0.9); MONOCYTES % (AUTO) 10.6 % (2-12); NEUTROPHILS # (AUTO) 9.3 X10'3 (1.8-7.7); NEUTROPHILS % (AUTO) 62.2 % (42-75); PLATELET COUNT 288 X10'3 (140-440); RED BLOOD COUNT 3.13 X10'6 (4.20-5.60); RED CELL DISTRIBUTION WIDTH 15.5 % (11.5-14.5); WHITE BLOOD COUNT 14.9 X10'3 (4.5-11.0)
[2020-12-25 06:33] LABS: ALANINE AMINOTRANSFERASE 14 U/L (12-78); ALBUMIN 2.8 G/DL (3.4-5.0); ALBUMIN/GLOBULIN RATIO 0.8 (1.1-1.5); ALKALINE PHOSPHATASE 97 IU/L (46-116); ANION GAP 5 (8-16); ASPARTATE AMINO TRANSFERASE 20 U/L (10-37); BILIRUBIN,TOTAL 0.3 MG/DL (0.1-1.0); BLOOD UREA NITROGEN 15 MG/DL (7-18); BUN/CREATININE RATIO 22.1 (6.6-38.0); CALCIUM 8.4 MG/DL (8.5-10.1); CHLORIDE 101 MMOL/L (99-107); CREATININE 0.68 MG/DL (0.40-0.90); GLUCOSE 120 MG/DL (70-104); POTASSIUM 4.8 MMOL/L (3.5-5.1); SODIUM 135 MMOL/L (135-145); TOTAL CARBON DIOXIDE 28.6 MMOL/L (24-32); TOTAL PROTEIN 6.5 G/DL (6.4-8.2); eGFR 86 ML/MIN
--- NOTE | 2020-12-25 06:49 | NUR ---
Problems reprioritized. Patient report given, questions answered & plan of care reviewed with NANCY Fair.
--- NOTE | 2020-12-25 06:50 | NUR ---
Patient in room [facility]ANIEL 353. I have received report from Loretta CRUZ and had the opportunity to ask questions and assume patient care.
[2020-12-25 07:30] VITALS: BP 106/41
[2020-12-25] MEDS: rivaroxaban 20mg tablet PO SCH (08:00)
[2020-12-25] MEDS: K and/or MAG REPLACEMENT MC SCH ×2 (08:00→20:00)
[2020-12-25] MEDS: CefTRIAXone/D5W-Rocephin 1gm 50 ML IV SCH (08:11)
[2020-12-25] MEDS: venlafaxine XR 75mg capsule (Q24H) PO SCH (08:16)
[2020-12-25] MEDS: docusate sod 100mg capsule PO SCH ×2 (08:16→19:59)
[2020-12-25] MEDS: citalopram 20mg tablet PO SCH ×2 (08:17→19:59)
[2020-12-25] MEDS: lactobacillus rhamnosus 10,000 MMU CELLS/CAPSULE PO SCH ×2 (08:17→19:59)
[2020-12-25] MEDS: levoTHYROXINE 175mcg tablet PO SCH (08:17)
[2020-12-25] MEDS: digoxin 125mcg (0.125mg) tablet PO SCH (08:18)
[2020-12-25] MEDS: diltiazem CD 180mg cap (once-daily) PO SCH (08:18)
[2020-12-25] MEDS: pantoprazole 40mg Tablet.DR PO SCH (08:18)
[2020-12-25] MEDS: oxyCODONE/APAP 10/325mg tablet PO PRN ×2 (10:49→19:58)
[2020-12-25 11:00] VITALS: BP 109/56
--- NOTE | 2020-12-25 11:05 | NUR ---
PAGER ID: [phone] MESSAGE: RE: ROOM 353, DEPTUCH, YELENA IVY HELD PT'S XARELTO THIS A.M. DUE TO DECREASED YESTERDAY H/H 8.9/28.3, TODAY IS 8.0/24.7 BLOOD LOSS YESTERDAY'S SURGERY [id number] CC. THANK YOU, LYLA [id number] WILL CONTINUE TO MONITOR.
--- NOTE | 2020-12-25 12:17 | NUR ---
Initial: Pt admit for UTI and ground level fall with right hip pain secondary to right proximal femur fracture. Pt s/p removal right femur hardware and ORIF 12/24. Pt on an MM5 thin liquid diet though documented to be NPO throughout most of LOS with first actual meal being 25% PO intake at dinner 12/23. Noted pt with 100% PO intake at dinner 12/24, possibly first meal post-op. LBM 12/21, documented with no GI symptoms and receiving routine bowel care. D/w dietary to send prune juice with next meal to further assist with bowel regularity. Will continue to follow and monitor need for further nutrition intervention pending additional trends in PO intake. Recommendations: 1) Continue MM5 diet with thin liquids; advance to regular as tolerated 2) Monitor need for additional protein/ONS 3) Routine bowel care 4) Scaled weight this admit; weekly scaled weights thereafter Addendum: 12/25/20 at [address] Amended: Links added.
[2020-12-25 18:00] VITALS: BP 111/49
--- NOTE | 2020-12-25 18:33 | NUR ---
Problems reprioritized. Patient report given, questions answered & plan of care reviewed with Robert CRUZ.
--- NOTE | 2020-12-25 19:37 | NUR ---
Patient in room DANIEL 353. I have received report from NANCY Fair and had the opportunity to ask questions and assume patient care.
[2020-12-25] MEDS: atorvastatin 10mg tablet PO SCH (19:59)
[2020-12-25] MEDS: QUEtiapine 25mg tablet PO SCH (20:00)
[2020-12-25] MEDS: LORazepam 2 mg/ml vial IV PRN (20:31)
[2020-12-26] MEDS: oxyCODONE/APAP 5-325mg tablet PO PRN (03:38)
--- NOTE | 2020-12-26 06:42 | NUR ---
Patient in room DANIEL 353. I have received report from NANCY Jones and had the opportunity to ask questions and assume patient care.
--- NOTE | 2020-12-26 06:44 | NUR ---
Problems reprioritized. Patient report given, questions answered & plan of care reviewed with NANCY Leroy.
[2020-12-26 07:00] VITALS: BP 100/55
[2020-12-26] MEDS: venlafaxine XR 75mg capsule (Q24H) PO SCH (07:52)
[2020-12-26] MEDS: levoTHYROXINE 175mcg tablet PO SCH (07:52)
[2020-12-26] MEDS: HYDROmorphone 1 mg/ml syringe IV PRN ×6 (07:52→22:28)
[2020-12-26] MEDS: docusate sod 100mg capsule PO SCH ×2 (07:52→20:00)
[2020-12-26] MEDS: digoxin 125mcg (0.125mg) tablet PO SCH (07:52)
[2020-12-26] MEDS: rivaroxaban 20mg tablet PO SCH (07:53)
[2020-12-26] MEDS: citalopram 20mg tablet PO SCH ×2 (07:53→20:21)
[2020-12-26] MEDS: diltiazem CD 180mg cap (once-daily) PO SCH (07:53)
[2020-12-26] MEDS: pantoprazole 40mg Tablet.DR PO SCH (07:53)
[2020-12-26] MEDS: lactobacillus rhamnosus 10,000 MMU CELLS/CAPSULE PO SCH ×2 (07:53→20:22)
[2020-12-26] MEDS: CefTRIAXone/D5W-Rocephin 1gm 50 ML IV SCH (07:54)
[2020-12-26] MEDS: K and/or MAG REPLACEMENT MC SCH ×2 (08:00→20:00)
[2020-12-26] MEDS: LORazepam 2 mg/ml vial IV PRN (09:53)
[2020-12-26 12:18] VITALS: BP 133/75
[2020-12-26 12:38] VITALS: BP 114/56
[2020-12-26 18:00] VITALS: BP 105/52
--- NOTE | 2020-12-26 18:44 | NUR ---
Problems reprioritized. Patient report given, questions answered & plan of care reviewed with NANCY Blas.
[2020-12-26] MEDS: atorvastatin 10mg tablet PO SCH (20:22)
[2020-12-26] MEDS: QUEtiapine 25mg tablet PO SCH (20:22)
[2020-12-27] VITALS (8 sets, daily range): BP systolic 100–127; BP diastolic 49–69
[2020-12-27] MEDS: oxyCODONE/APAP 10/325mg tablet PO PRN ×5 (00:54→22:02)
--- NOTE | 2020-12-27 04:27 | NUR ---
Patient in room DANIEL 353. I have received report from Rad CRUZ and had the opportunity to ask questions and assume patient care.
[2020-12-27] MEDS: HYDROmorphone 1 mg/ml syringe IV PRN ×4 (05:46→20:15)
--- NOTE | 2020-12-27 06:50 | NUR ---
Patient in room DANIEL 353. I have received report from NANCY Blas and had the opportunity to ask questions and assume patient care.
[2020-12-27] MEDS: rivaroxaban 20mg tablet PO SCH (08:00)
[2020-12-27] MEDS: K and/or MAG REPLACEMENT MC SCH ×2 (08:00→20:00)
[2020-12-27 08:11] LABS: BASOPHILS # (AUTO) 0.1 X10'3 (0-0.2); BASOPHILS % (AUTO) 0.7 % (0-1); EOSINOPHILS # (AUTO) 0.3 X10'3 (0-0.9); EOSINOPHILS % (AUTO) 2.3 % (0-6); HEMATOCRIT 23.5 % (35.0-45.0); HEMOGLOBIN 7.6 g/dl (12.0-16.0); LYMPHOCYTES # (AUTO) 3.4 X10'3 (1.1-4.8); LYMPHOCYTES % (AUTO) 29.6 % (21-51); MEAN CORPUSCULAR HEMOGLOBIN 25.9 PG (27.0-31.0); MEAN CORPUSCULAR HGB CONC 32.5 g/dL (33.0-36.5); MEAN CORPUSCULAR VOLUME 79.6 FL (78-98); MEAN PLATELET VOLUME 7.4 FL (7.4-10.4); MONOCYTES # (AUTO) 0.7 X10'3 (0-0.9); MONOCYTES % (AUTO) 6.3 % (2-12); NEUTROPHILS # (AUTO) 7.1 X10'3 (1.8-7.7); NEUTROPHILS % (AUTO) 61.1 % (42-75); PLATELET COUNT 251 X10'3 (140-440); RED BLOOD COUNT 2.95 X10'6 (4.20-5.60); RED CELL DISTRIBUTION WIDTH 15.3 % (11.5-14.5); WHITE BLOOD COUNT 11.6 X10'3 (4.5-11.0)
[2020-12-27 08:23] LABS: ALANINE AMINOTRANSFERASE 15 U/L (12-78); ALBUMIN 2.7 G/DL (3.4-5.0); ALBUMIN/GLOBULIN RATIO 0.7 (1.1-1.5); ALKALINE PHOSPHATASE 110 IU/L (46-116); ANION GAP 6 (8-16); ASPARTATE AMINO TRANSFERASE 22 U/L (10-37); BILIRUBIN,TOTAL 0.5 MG/DL (0.1-1.0); BLOOD UREA NITROGEN 8 MG/DL (7-18); BUN/CREATININE RATIO 12.9 (6.6-38.0); CALCIUM 8.8 MG/DL (8.5-10.1); CHLORIDE 98 MMOL/L (99-107); CREATININE 0.62 MG/DL (0.40-0.90); GLUCOSE 118 MG/DL (70-104); MAGNESIUM 1.8 MG/DL (1.5-2.4); POTASSIUM 3.5 MMOL/L (3.5-5.1); SODIUM 133 MMOL/L (135-145); TOTAL CARBON DIOXIDE 29.1 MMOL/L (24-32); TOTAL PROTEIN 6.8 G/DL (6.4-8.2); eGFR > 90 ML/MIN
[2020-12-27] MEDS: CefTRIAXone/D5W-Rocephin 1gm 50 ML IV SCH (08:36)
[2020-12-27] MEDS: pantoprazole 40mg Tablet.DR PO SCH (08:37)
[2020-12-27] MEDS: docusate sod 100mg capsule PO SCH ×2 (08:37→22:01)
[2020-12-27] MEDS: digoxin 125mcg (0.125mg) tablet PO SCH (08:37)
[2020-12-27] MEDS: diltiazem CD 180mg cap (once-daily) PO SCH (08:37)
[2020-12-27] MEDS: levoTHYROXINE 175mcg tablet PO SCH (08:38)
[2020-12-27] MEDS: lactobacillus rhamnosus 10,000 MMU CELLS/CAPSULE PO SCH ×2 (08:38→22:01)
[2020-12-27] MEDS: citalopram 20mg tablet PO SCH ×2 (08:38→22:01)
[2020-12-27] MEDS: venlafaxine XR 75mg capsule (Q24H) PO SCH (08:38)
--- NOTE | 2020-12-27 16:17 | NUR ---
1 unit of PRBC started as per primary nurse Honey request. Before I hung the blood Honey said it's been 15 minutes ago since she received the blood product. Pretransfusion vital signs taken and education provided to patient regarding the need to monitor vital signs and monitor patient for signs and symptoms of transfusion reactions. Addendum: 12/27/20 at 1620 by Sanaz Brink RN Patient verbalized understanding of all instructions made regarding blood transfusion reaction.
[2020-12-27] MEDS: ondansetron 4mg rapidly disintigrating tab PO PRN (16:23)
--- NOTE | 2020-12-27 16:24 | NUR ---
Patient was complaining of nausea even before I started the PRBC transfusion, I asked patient to wait till I finish the setting up of transfusion. Patient agreed. Zofran PO given as indicated for nausea. IV Zofran cannot administer due to ongoing blood transfusion. Primary nurse Honey aware of this.
--- NOTE | 2020-12-27 16:36 | NUR ---
First 15 minutes of blood transfusion completed with no transfusion reaction noted. Primary nurse Honey notified about this and asked her to take over the care.
[2020-12-27] MEDS: QUEtiapine 25mg tablet PO SCH (22:01)
[2020-12-27] MEDS: nystatin 15 GM powder TP SCH (22:01)
[2020-12-27] MEDS: atorvastatin 10mg tablet PO SCH (22:01)
[2020-12-27] MEDS: ondansetron/PF 4mg/2ml inj IV PRN (22:03)
[2020-12-28] MEDS ORDERED: mag hydrox/Alum hydrox/simeth 30ml oral suspension PO PRN (00:10)
[2020-12-28] MEDS: HYDROmorphone 1 mg/ml syringe IV PRN ×6 (00:29→20:19)
[2020-12-28] MEDS: oxyCODONE/APAP 10/325mg tablet PO PRN ×3 (02:53→22:04)
[2020-12-28 05:56] LABS: BASOPHILS # (AUTO) 0.1 X10'3 (0-0.2); BASOPHILS % (AUTO) 0.5 % (0-1); EOSINOPHILS # (AUTO) 0.3 X10'3 (0-0.9); EOSINOPHILS % (AUTO) 2.5 % (0-6); HEMATOCRIT 24.9 % (35.0-45.0); HEMOGLOBIN 8.1 g/dl (12.0-16.0); LYMPHOCYTES # (AUTO) 1.8 X10'3 (1.1-4.8); LYMPHOCYTES % (AUTO) 16.8 % (21-51); MEAN CORPUSCULAR HEMOGLOBIN 26.4 PG (27.0-31.0); MEAN CORPUSCULAR HGB CONC 32.7 g/dL (33.0-36.5); MEAN CORPUSCULAR VOLUME 80.9 FL (78-98); MEAN PLATELET VOLUME 7.9 FL (7.4-10.4); MONOCYTES # (AUTO) 0.4 X10'3 (0-0.9); MONOCYTES % (AUTO) 3.6 % (2-12); NEUTROPHILS # (AUTO) 8.2 X10'3 (1.8-7.7); NEUTROPHILS % (AUTO) 76.6 % (42-75); PLATELET COUNT 235 X10'3 (140-440); RED BLOOD COUNT 3.07 X10'6 (4.20-5.60); RED CELL DISTRIBUTION WIDTH 15.3 % (11.5-14.5); WHITE BLOOD COUNT 10.7 X10'3 (4.5-11.0)
[2020-12-28 06:32] LABS: ALANINE AMINOTRANSFERASE 15 U/L (12-78); ALBUMIN 2.5 G/DL (3.4-5.0); ALBUMIN/GLOBULIN RATIO 0.6 (1.1-1.5); ALKALINE PHOSPHATASE 114 IU/L (46-116); ANION GAP 5 (8-16); ASPARTATE AMINO TRANSFERASE 24 U/L (10-37); BILIRUBIN,TOTAL 0.9 MG/DL (0.1-1.0); BLOOD UREA NITROGEN 11 MG/DL (7-18); BUN/CREATININE RATIO 15.3 (6.6-38.0); CALCIUM 8.9 MG/DL (8.5-10.1); CHLORIDE 100 MMOL/L (99-107); CREATININE 0.72 MG/DL (0.40-0.90); GLUCOSE 109 MG/DL (70-104); MAGNESIUM 1.9 MG/DL (1.5-2.4); POTASSIUM 4.4 MMOL/L (3.5-5.1); SODIUM 135 MMOL/L (135-145); TOTAL CARBON DIOXIDE 30.4 MMOL/L (24-32); TOTAL PROTEIN 6.5 G/DL (6.4-8.2); eGFR 81 ML/MIN
--- NOTE | 2020-12-28 06:45 | NUR ---
Problems reprioritized. Patient report given, questions answered & plan of care reviewed with NANCY Kendrick.
[2020-12-28 07:00] VITALS: BP 119/60
[2020-12-28] MEDS: rivaroxaban 20mg tablet PO SCH (07:59)
[2020-12-28] MEDS: citalopram 20mg tablet PO SCH ×2 (07:59→20:18)
[2020-12-28] MEDS: levoTHYROXINE 175mcg tablet PO SCH (07:59)
[2020-12-28] MEDS: venlafaxine XR 75mg capsule (Q24H) PO SCH (07:59)
[2020-12-28] MEDS: pantoprazole 40mg Tablet.DR PO SCH (07:59)
[2020-12-28] MEDS: diltiazem CD 180mg cap (once-daily) PO SCH (07:59)
[2020-12-28] MEDS: docusate sod 100mg capsule PO SCH ×2 (07:59→20:18)
[2020-12-28] MEDS: CefTRIAXone/D5W-Rocephin 1gm 50 ML IV SCH (07:59)
[2020-12-28] MEDS: lactobacillus rhamnosus 10,000 MMU CELLS/CAPSULE PO SCH ×2 (07:59→20:17)
[2020-12-28] MEDS: digoxin 125mcg (0.125mg) tablet PO SCH (08:00)
[2020-12-28] MEDS: oxyCODONE/APAP 5-325mg tablet PO PRN (08:00)
[2020-12-28] MEDS: K and/or MAG REPLACEMENT MC SCH ×2 (08:00→20:00)
[2020-12-28] MEDS: nystatin 15 GM powder TP SCH ×2 (08:00→20:18)
[2020-12-28 11:00] VITALS: BP 106/56
[2020-12-28] MEDS: LORazepam 2 mg/ml vial IV PRN ×2 (14:40→23:16)
--- NOTE | 2020-12-28 18:30 | NUR ---
Patient in room DANIEL 353. I have received report from NANCY Kendrick and had the opportunity to ask questions and assume patient care. Addendum: 12/29/20 at 0313 by Magalys Zuniga RN Amended: Links added.
--- NOTE | 2020-12-28 18:52 | NUR ---
Problems reprioritized. Patient report given, questions answered & plan of care reviewed with NANCY Muñoz.
[2020-12-28 19:30] VITALS: BP 108/49
[2020-12-28] MEDS: QUEtiapine 25mg tablet PO SCH (20:17)
[2020-12-28] MEDS: atorvastatin 10mg tablet PO SCH (20:17)
[2020-12-29] VITALS: BP 103/49
[2020-12-29] MEDS: oxyCODONE/APAP 10/325mg tablet PO PRN ×4 (05:21→19:47)
[2020-12-29 06:15] LABS: BASOPHILS # (AUTO) 0.1 X10'3 (0-0.2); BASOPHILS % (AUTO) 0.6 % (0-1); EOSINOPHILS # (AUTO) 0.3 X10'3 (0-0.9); EOSINOPHILS % (AUTO) 3.7 % (0-6); HEMOGLOBIN 7.9 g/dl (12.0-16.0); LYMPHOCYTES # (AUTO) 2.4 X10'3 (1.1-4.8); LYMPHOCYTES % (AUTO) 25.7 % (21-51); MEAN CORPUSCULAR HEMOGLOBIN 26.6 PG (27.0-31.0); MEAN CORPUSCULAR HGB CONC 32.8 g/dL (33.0-36.5); MEAN CORPUSCULAR VOLUME 81.1 FL (78-98); MEAN PLATELET VOLUME 8.2 FL (7.4-10.4); MONOCYTES # (AUTO) 0.7 X10'3 (0-0.9); NEUTROPHILS # (AUTO) 5.7 X10'3 (1.8-7.7); PLATELET COUNT 242 X10'3 (140-440); RED BLOOD COUNT 2.96 X10'6 (4.20-5.60); RED CELL DISTRIBUTION WIDTH 15.1 % (11.5-14.5); WHITE BLOOD COUNT 9.2 X10'3 (4.5-11.0)
--- NOTE | 2020-12-29 06:39 | NUR ---
Problems reprioritized. Patient report given, questions answered & plan of care reviewed with NANCY EUCEDA. Addendum: 12/29/20 at 0639 by Magalys Zuniga RN Amended: Links added.
[2020-12-29 06:47] LABS: ALANINE AMINOTRANSFERASE 14 U/L (12-78); ALBUMIN 2.4 G/DL (3.4-5.0); ALBUMIN/GLOBULIN RATIO 0.6 (1.1-1.5); ALKALINE PHOSPHATASE 118 IU/L (46-116); ANION GAP 3 (8-16); ASPARTATE AMINO TRANSFERASE 24 U/L (10-37); BILIRUBIN,TOTAL 0.7 MG/DL (0.1-1.0); BLOOD UREA NITROGEN 8 MG/DL (7-18); BUN/CREATININE RATIO 13.3 (6.6-38.0); CALCIUM 8.8 MG/DL (8.5-10.1); CHLORIDE 98 MMOL/L (99-107); GLUCOSE 96 MG/DL (70-104); POTASSIUM 3.9 MMOL/L (3.5-5.1); SODIUM 132 MMOL/L (135-145); TOTAL CARBON DIOXIDE 31.2 MMOL/L (24-32); TOTAL PROTEIN 6.3 G/DL (6.4-8.2); eGFR > 90 ML/MIN
--- NOTE | 2020-12-29 06:50 | NUR ---
Patient in room DANIEL 353. I have received report from HESHAM CRUZ and had the opportunity to ask questions and assume patient care.
[2020-12-29] MEDS: CefTRIAXone/D5W-Rocephin 1gm 50 ML IV SCH (07:52)
[2020-12-29] MEDS: levoTHYROXINE 175mcg tablet PO SCH (07:52)
[2020-12-29] MEDS: citalopram 20mg tablet PO SCH ×2 (07:53→19:48)
[2020-12-29] MEDS: docusate sod 100mg capsule PO SCH ×2 (07:53→19:48)
[2020-12-29] MEDS: lactobacillus rhamnosus 10,000 MMU CELLS/CAPSULE PO SCH ×2 (07:54→19:48)
[2020-12-29] MEDS: rivaroxaban 20mg tablet PO SCH (07:54)
[2020-12-29] MEDS: diltiazem CD 180mg cap (once-daily) PO SCH (07:54)
[2020-12-29] MEDS: pantoprazole 40mg Tablet.DR PO SCH (07:54)
[2020-12-29] MEDS: venlafaxine XR 75mg capsule (Q24H) PO SCH (07:54)
[2020-12-29] MEDS: digoxin 125mcg (0.125mg) tablet PO SCH (07:54)
[2020-12-29] MEDS: HYDROmorphone 1 mg/ml syringe IV PRN ×3 (07:55→21:33)
[2020-12-29 08:00] VITALS: BP 136/62
[2020-12-29] MEDS: K and/or MAG REPLACEMENT MC SCH ×2 (08:00→20:00)
[2020-12-29] MEDS: nystatin 15 GM powder TP SCH ×2 (08:16→21:32)
[2020-12-29 10:40] LABS: ISTAT ANION GAP 11 (8-12); ISTAT BUN 10 mg/dL (7-18); ISTAT CL 99 mmol/L (99-107); ISTAT CREATININE 0.5 mg/dL (0.6-1.1); ISTAT K 4.4 mmol/L (3.5-5.1); ISTAT TOTAL CO2 25 mmol/L (24-32)
[2020-12-29 10:41] LABS: ISTAT GLUCOSE 163 mg/dL (70-105); ISTAT HGB 9.5 g/dl (12.0-16.0); ISTAT Hct 28 %PCV (35-48); ISTAT IONIZED CALCIUM 1.08 mmol/L (1.03-1.32); ISTAT eGFR > 90 ML/MIN
[2020-12-29 10:42] LABS: ISTAT NA 135 mmol/L (135-145)
[2020-12-29 11:00] VITALS: BP 104/59
--- NOTE | 2020-12-29 12:33 | NUR ---
Reassessment: PO intake has improved, pt eating mostly 100% of meals on MM5 regular diet meeting needs. Pt states she is feeling better. Pt reports she experiences some intermittent nausea but no vomiting. LBM 12/27 receiving routine colace. No new nutritional intervention implemented at this time. Will continue to monitor. Recommendations: 1) Continue MM5 diet with thin liquids; advance to regular as tolerated 2) Monitor need for additional protein/ONS 3) Routine bowel care 4) Scaled weight this admit; weekly scaled weights thereafter Addendum: 12/29/20 at [address] Amended: Links added.
--- NOTE | 2020-12-29 17:22 | NUR ---
PATIENT MEDICATED FOR PAIN Q2-4 HRS SEE EMAR. WITH SOME EFFECT. WORKED WITH PT SEE NOTE.
--- NOTE | 2020-12-29 18:26 | NUR ---
Patient in room DANIEL 353. I have received report from NANCY Moncada and had the opportunity to ask questions and assume patient care.
--- NOTE | 2020-12-29 18:56 | NUR ---
noticed that patient often appeared to be resting well but still asking for dilaudid and percocet q 2hrly .patient educated for DC plan with regards pain relief and .preparation for admission to Rehab . report given to Loretta CRUZ
[2020-12-29 20:00] VITALS: BP 108/49
[2020-12-29] MEDS: QUEtiapine 25mg tablet PO SCH (21:32)
[2020-12-29] MEDS: atorvastatin 10mg tablet PO SCH (21:33)
[2020-12-30] VITALS: BP 99/53
[2020-12-30] MEDS: oxyCODONE/APAP 5-325mg tablet PO PRN (00:38)
[2020-12-30] MEDS: HYDROmorphone 1 mg/ml syringe IV PRN ×4 (02:06→22:50)
--- NOTE | 2020-12-30 06:47 | NUR ---
Problems reprioritized. Patient report given, questions answered & plan of care reviewed with NANCY Moncada.
--- NOTE | 2020-12-30 06:50 | NUR ---
Patient in room DANIEL 353. I have received report from bia CRUZ and had the opportunity to ask questions and assume patient care.
[2020-12-30 06:56] LABS: BASOPHILS # (AUTO) 0.1 X10'3 (0-0.2); BASOPHILS % (AUTO) 0.6 % (0-1); EOSINOPHILS # (AUTO) 0.3 X10'3 (0-0.9); EOSINOPHILS % (AUTO) 3.3 % (0-6); HEMATOCRIT 23.9 % (35.0-45.0); HEMOGLOBIN 7.7 g/dl (12.0-16.0); LYMPHOCYTES # (AUTO) 3.1 X10'3 (1.1-4.8); LYMPHOCYTES % (AUTO) 34.2 % (21-51); MEAN CORPUSCULAR HEMOGLOBIN 26.1 PG (27.0-31.0); MEAN CORPUSCULAR HGB CONC 32.1 g/dL (33.0-36.5); MEAN CORPUSCULAR VOLUME 81.2 FL (78-98); MEAN PLATELET VOLUME 7.7 FL (7.4-10.4); MONOCYTES # (AUTO) 0.8 X10'3 (0-0.9); MONOCYTES % (AUTO) 9.3 % (2-12); NEUTROPHILS # (AUTO) 4.7 X10'3 (1.8-7.7); NEUTROPHILS % (AUTO) 52.6 % (42-75); PLATELET COUNT 277 X10'3 (140-440); RED BLOOD COUNT 2.95 X10'6 (4.20-5.60); RED CELL DISTRIBUTION WIDTH 15.8 % (11.5-14.5)
[2020-12-30 07:00] VITALS: BP 106/48
[2020-12-30 07:14] LABS: ALANINE AMINOTRANSFERASE 14 U/L (12-78); ALBUMIN 2.3 G/DL (3.4-5.0); ALBUMIN/GLOBULIN RATIO 0.6 (1.1-1.5); ALKALINE PHOSPHATASE 120 IU/L (46-116); ANION GAP 4 (8-16); ASPARTATE AMINO TRANSFERASE 19 U/L (10-37); BILIRUBIN,TOTAL 0.6 MG/DL (0.1-1.0); BLOOD UREA NITROGEN 9 MG/DL (7-18); BUN/CREATININE RATIO 14.3 (6.6-38.0); CALCIUM 8.5 MG/DL (8.5-10.1); CHLORIDE 104 MMOL/L (99-107); CREATININE 0.63 MG/DL (0.40-0.90); GLUCOSE 84 MG/DL (70-104); MAGNESIUM 1.9 MG/DL (1.5-2.4); POTASSIUM 4.3 MMOL/L (3.5-5.1); SODIUM 139 MMOL/L (135-145); TOTAL CARBON DIOXIDE 30.6 MMOL/L (24-32); TOTAL PROTEIN 6.2 G/DL (6.4-8.2); eGFR > 90 ML/MIN
[2020-12-30] MEDS: K and/or MAG REPLACEMENT MC SCH ×2 (08:00→20:00)
[2020-12-30] MEDS: nystatin 15 GM powder TP SCH ×2 (08:00→20:09)
[2020-12-30] MEDS: levoTHYROXINE 175mcg tablet PO SCH (08:57)
[2020-12-30] MEDS: diltiazem CD 180mg cap (once-daily) PO SCH (08:58)
[2020-12-30] MEDS: oxyCODONE/APAP 10/325mg tablet PO PRN ×3 (08:58→20:06)
[2020-12-30] MEDS: digoxin 125mcg (0.125mg) tablet PO SCH (08:58)
[2020-12-30] MEDS: rivaroxaban 20mg tablet PO SCH (08:58)
[2020-12-30] MEDS: lactobacillus rhamnosus 10,000 MMU CELLS/CAPSULE PO SCH ×2 (08:59→20:06)
[2020-12-30] MEDS: citalopram 20mg tablet PO SCH ×2 (08:59→20:06)
[2020-12-30] MEDS: pantoprazole 40mg Tablet.DR PO SCH (08:59)
[2020-12-30] MEDS: venlafaxine XR 75mg capsule (Q24H) PO SCH (08:59)
[2020-12-30] MEDS: docusate sod 100mg capsule PO SCH ×2 (08:59→20:05)
[2020-12-30 18:00] VITALS: BP 110/54
--- NOTE | 2020-12-30 19:02 | NUR ---
patient resting in bed triaged by PT. medicated for pain q4hrly with percocet and dilaudid for breakthrough pain with good effect. dressing to right hip CDI. Report given to rory CRUZ
--- NOTE | 2020-12-30 19:42 | NUR ---
Patient in room DANIEL 353. I have received report from Coral CRUZ and had the opportunity to ask questions and assume patient care.
[2020-12-30] MEDS: QUEtiapine 25mg tablet PO SCH (20:06)
[2020-12-30] MEDS: atorvastatin 10mg tablet PO SCH (20:06)
[2020-12-30] MEDS: LORazepam 2 mg/ml vial IV PRN (21:39)
[2020-12-31] VITALS: BP 98/58
[2020-12-31] MEDS: HYDROmorphone 1 mg/ml syringe IV PRN ×5 (02:40→20:27)
[2020-12-31 06:00] VITALS: BP 101/39
[2020-12-31 06:04] LABS: BASOPHILS # (AUTO) 0.1 X10'3 (0-0.2); EOSINOPHILS # (AUTO) 0.4 X10'3 (0-0.9); EOSINOPHILS % (AUTO) 3.3 % (0-6); HEMATOCRIT 25.2 % (35.0-45.0); HEMOGLOBIN 7.9 g/dl (12.0-16.0); LYMPHOCYTES # (AUTO) 3.2 X10'3 (1.1-4.8); LYMPHOCYTES % (AUTO) 29.8 % (21-51); MEAN CORPUSCULAR HEMOGLOBIN 25.8 PG (27.0-31.0); MEAN CORPUSCULAR HGB CONC 31.5 g/dL (33.0-36.5); MEAN CORPUSCULAR VOLUME 81.9 FL (78-98); MEAN PLATELET VOLUME 7.9 FL (7.4-10.4); MONOCYTES # (AUTO) 0.9 X10'3 (0-0.9); MONOCYTES % (AUTO) 8.2 % (2-12); NEUTROPHILS # (AUTO) 6.1 X10'3 (1.8-7.7); NEUTROPHILS % (AUTO) 57.7 % (42-75); PLATELET COUNT 308 X10'3 (140-440); RED BLOOD COUNT 3.07 X10'6 (4.20-5.60); RED CELL DISTRIBUTION WIDTH 16.1 % (11.5-14.5); WHITE BLOOD COUNT 10.6 X10'3 (4.5-11.0)
[2020-12-31 06:31] LABS: ALANINE AMINOTRANSFERASE 11 U/L (12-78); ALBUMIN 2.3 G/DL (3.4-5.0); ALBUMIN/GLOBULIN RATIO 0.6 (1.1-1.5); ALKALINE PHOSPHATASE 133 IU/L (46-116); ANION GAP 6 (8-16); ASPARTATE AMINO TRANSFERASE 19 U/L (10-37); BILIRUBIN,TOTAL 0.6 MG/DL (0.1-1.0); BLOOD UREA NITROGEN 8 MG/DL (7-18); BUN/CREATININE RATIO 12.7 (6.6-38.0); CALCIUM 8.7 MG/DL (8.5-10.1); CHLORIDE 105 MMOL/L (99-107); CREATININE 0.63 MG/DL (0.40-0.90); GLUCOSE 100 MG/DL (70-104); SODIUM 139 MMOL/L (135-145); TOTAL PROTEIN 6.3 G/DL (6.4-8.2); eGFR > 90 ML/MIN
--- NOTE | 2020-12-31 06:47 | NUR ---
Problems reprioritized. Patient report given, questions answered & plan of care reviewed with Anya CRUZ.
[2020-12-31] MEDS: K and/or MAG REPLACEMENT MC SCH ×2 (08:00→20:00)
[2020-12-31] MEDS: docusate sod 100mg capsule PO SCH ×2 (09:36→20:26)
[2020-12-31] MEDS: lactobacillus rhamnosus 10,000 MMU CELLS/CAPSULE PO SCH ×2 (09:36→20:25)
[2020-12-31] MEDS: rivaroxaban 20mg tablet PO SCH (09:36)
[2020-12-31] MEDS: pantoprazole 40mg Tablet.DR PO SCH (09:36)
[2020-12-31] MEDS: levoTHYROXINE 175mcg tablet PO SCH (09:36)
[2020-12-31] MEDS: citalopram 20mg tablet PO SCH ×2 (09:36→20:25)
[2020-12-31] MEDS: diltiazem CD 180mg cap (once-daily) PO SCH (09:37)
[2020-12-31] MEDS: digoxin 125mcg (0.125mg) tablet PO SCH (09:37)
[2020-12-31] MEDS: nystatin 15 GM powder TP SCH ×2 (09:38→20:31)
[2020-12-31] MEDS: venlafaxine XR 75mg capsule (Q24H) PO SCH (09:38)
--- NOTE | 2020-12-31 09:48 | NUR ---
Paged RT for treatment r/t pt has expiratory wheezes and crackles
[2020-12-31] MEDS ORDERED: furosemide 40mg/4ml inj IV ONE (09:55)
[2020-12-31 11:00] VITALS: BP 115/53
[2020-12-31 11:11] VITALS: BP 110/56
[2020-12-31] MEDS: oxyCODONE/APAP 10/325mg tablet PO PRN (13:53)
[2020-12-31] MEDS: baclofen 10mg tablet PO SCH (17:49)
[2020-12-31 18:00] VITALS: BP 107/54
--- NOTE | 2020-12-31 18:45 | NUR ---
Gave report to Deanne CRUZ.
--- NOTE | 2020-12-31 19:30 | NUR ---
Patient in room DANIEL 353. I have received report from Anya CRUZ and had the opportunity to ask questions and assume patient care.
[2020-12-31] MEDS: atorvastatin 10mg tablet PO SCH (20:26)
[2020-12-31] MEDS: QUEtiapine 25mg tablet PO SCH (20:26)
[2021-01-01] VITALS: BP 112/58
[2021-01-01] MEDS: baclofen 10mg tablet PO SCH ×3 (01:14→16:36)
[2021-01-01] MEDS: oxyCODONE/APAP 10/325mg tablet PO PRN ×3 (04:50→19:49)
--- NOTE | 2021-01-01 06:21 | NUR ---
Problems reprioritized. Patient report given, questions answered & plan of care reviewed with Anya CRUZ.
[2021-01-01 06:41] LABS: BASOPHILS # (AUTO) 0.1 X10'3 (0-0.2); BASOPHILS % (AUTO) 0.6 % (0-1); EOSINOPHILS # (AUTO) 0.3 X10'3 (0-0.9); EOSINOPHILS % (AUTO) 3.5 % (0-6); HEMOGLOBIN 8.2 g/dl (12.0-16.0); LYMPHOCYTES % (AUTO) 19.8 % (21-51); MEAN CORPUSCULAR HEMOGLOBIN 25.7 PG (27.0-31.0); MEAN CORPUSCULAR HGB CONC 31.6 g/dL (33.0-36.5); MEAN CORPUSCULAR VOLUME 81.4 FL (78-98); MEAN PLATELET VOLUME 7.9 FL (7.4-10.4); MONOCYTES # (AUTO) 0.7 X10'3 (0-0.9); MONOCYTES % (AUTO) 7.2 % (2-12); NEUTROPHILS # (AUTO) 6.9 X10'3 (1.8-7.7); NEUTROPHILS % (AUTO) 68.9 % (42-75); PLATELET COUNT 304 X10'3 (140-440); RED BLOOD COUNT 3.19 X10'6 (4.20-5.60); RED CELL DISTRIBUTION WIDTH 16.1 % (11.5-14.5); WHITE BLOOD COUNT 9.9 X10'3 (4.5-11.0)
[2021-01-01 06:58] LABS: ALANINE AMINOTRANSFERASE 14 U/L (12-78); ALBUMIN 2.4 G/DL (3.4-5.0); ALBUMIN/GLOBULIN RATIO 0.6 (1.1-1.5); ALKALINE PHOSPHATASE 139 IU/L (46-116); ANION GAP 7 (8-16); ASPARTATE AMINO TRANSFERASE 16 U/L (10-37); BILIRUBIN,TOTAL 0.6 MG/DL (0.1-1.0); BLOOD UREA NITROGEN 8 MG/DL (7-18); BUN/CREATININE RATIO 11.6 (6.6-38.0); CALCIUM 8.7 MG/DL (8.5-10.1); CHLORIDE 105 MMOL/L (99-107); CREATININE 0.69 MG/DL (0.40-0.90); GLUCOSE 120 MG/DL (70-104); MAGNESIUM 1.9 MG/DL (1.5-2.4); POTASSIUM 3.9 MMOL/L (3.5-5.1); SODIUM 141 MMOL/L (135-145); TOTAL CARBON DIOXIDE 29.5 MMOL/L (24-32); TOTAL PROTEIN 6.6 G/DL (6.4-8.2); eGFR 85 ML/MIN
[2021-01-01 07:41] VITALS: BP 128/54
[2021-01-01] MEDS: K and/or MAG REPLACEMENT MC SCH ×2 (08:00→20:00)
[2021-01-01] MEDS: venlafaxine XR 75mg capsule (Q24H) PO SCH (08:00)
[2021-01-01] MEDS ORDERED: furosemide 40mg tablet PO SCH (08:00)
[2021-01-01] MEDS: lactobacillus rhamnosus 10,000 MMU CELLS/CAPSULE PO SCH ×2 (09:34→20:25)
[2021-01-01] MEDS: rivaroxaban 20mg tablet PO SCH (09:34)
[2021-01-01] MEDS: levoTHYROXINE 175mcg tablet PO SCH (09:35)
[2021-01-01] MEDS: digoxin 125mcg (0.125mg) tablet PO SCH (09:35)
[2021-01-01] MEDS: diltiazem CD 180mg cap (once-daily) PO SCH (09:35)
[2021-01-01] MEDS: docusate sod 100mg capsule PO SCH ×2 (09:35→20:26)
[2021-01-01] MEDS: pantoprazole 40mg Tablet.DR PO SCH (09:35)
[2021-01-01] MEDS: citalopram 20mg tablet PO SCH ×2 (09:35→20:26)
[2021-01-01] MEDS: nystatin 15 GM powder TP SCH ×2 (09:36→20:29)
[2021-01-01] MEDS: HYDROmorphone 1 mg/ml syringe IV PRN ×2 (09:37→16:37)
[2021-01-01 11:00] VITALS: BP 108/56
[2021-01-01 18:00] VITALS: BP 103/50
--- NOTE | 2021-01-01 18:48 | NUR ---
Gave report to TANYA CRUZ.
--- NOTE | 2021-01-01 18:57 | NUR ---
Patient in room DANIEL 353. I have received report from Anya CRUZ and had the opportunity to ask questions and assume patient care.
[2021-01-01] MEDS: QUEtiapine 25mg tablet PO SCH (20:26)
[2021-01-01] MEDS: atorvastatin 10mg tablet PO SCH (20:27)
[2021-01-02] VITALS: BP 105/51
[2021-01-02] MEDS: oxyCODONE/APAP 10/325mg tablet PO PRN ×5 (05:09→21:12)
[2021-01-02 06:30] VITALS: BP 98/51
--- NOTE | 2021-01-02 06:30 | NUR ---
Patient in room DANIEL 353. I have received report from NANCY MARTÍNEZ and had the opportunity to ask questions and assume patient care.
--- NOTE | 2021-01-02 06:42 | NUR ---
Problems reprioritized. Patient report given, questions answered & plan of care reviewed with Honey RN.
[2021-01-02] MEDS: diltiazem CD 180mg cap (once-daily) PO SCH (07:51)
[2021-01-02] MEDS: K and/or MAG REPLACEMENT MC SCH ×2 (07:51→18:28)
[2021-01-02] MEDS: furosemide 20MG tablet PO SCH (07:52)
[2021-01-02] MEDS: venlafaxine XR 75mg capsule (Q24H) PO SCH (08:57)
[2021-01-02] MEDS: rivaroxaban 20mg tablet PO SCH (08:57)
[2021-01-02] MEDS: levoTHYROXINE 175mcg tablet PO SCH (08:57)
[2021-01-02] MEDS: lactobacillus rhamnosus 10,000 MMU CELLS/CAPSULE PO SCH ×2 (08:58→21:10)
[2021-01-02] MEDS: pantoprazole 40mg Tablet.DR PO SCH (08:58)
[2021-01-02] MEDS: digoxin 125mcg (0.125mg) tablet PO SCH (08:58)
[2021-01-02] MEDS: docusate sod 100mg capsule PO SCH ×2 (08:58→21:11)
[2021-01-02] MEDS: citalopram 20mg tablet PO SCH ×2 (08:58→21:10)
[2021-01-02] MEDS: nystatin 15 GM powder TP SCH ×2 (08:59→20:00)
[2021-01-02 11:00] VITALS: BP 93/48
[2021-01-02 18:00] VITALS: BP 107/58
[2021-01-02] MEDS: baclofen 10mg tablet PO PRN (18:21)
--- NOTE | 2021-01-02 18:30 | NUR ---
Problems reprioritized. Patient report given, questions answered & plan of care reviewed with TANYA RN.
[2021-01-02] MEDS: QUEtiapine 25mg tablet PO SCH (21:11)
[2021-01-02] MEDS: atorvastatin 10mg tablet PO SCH (21:11)
[2021-01-02] MEDS: LORazepam 2 mg/ml vial IV PRN (23:58)
[2021-01-03] VITALS: BP 108/72
[2021-01-03] MEDS: oxyCODONE/APAP 10/325mg tablet PO PRN ×6 (01:19→22:29)
[2021-01-03 06:30] VITALS: BP 101/66
--- NOTE | 2021-01-03 06:36 | NUR ---
Problems reprioritized. Patient report given, questions answered & plan of care reviewed with Honey RN.
--- NOTE | 2021-01-03 06:40 | NUR ---
Patient in room DANIEL 353. I have received report from NANCY MARTÍNEZ and had the opportunity to ask questions and assume patient care.
[2021-01-03] MEDS: K and/or MAG REPLACEMENT MC SCH ×2 (07:24→20:00)
[2021-01-03] MEDS: diltiazem CD 180mg cap (once-daily) PO SCH (08:00)
[2021-01-03] MEDS: furosemide 20MG tablet PO SCH (08:00)
[2021-01-03] MEDS: docusate sod 100mg capsule PO SCH ×2 (09:59→20:35)
[2021-01-03] MEDS: venlafaxine XR 75mg capsule (Q24H) PO SCH (09:59)
[2021-01-03] MEDS: pantoprazole 40mg Tablet.DR PO SCH (10:00)
[2021-01-03] MEDS: levoTHYROXINE 175mcg tablet PO SCH (10:00)
[2021-01-03] MEDS: citalopram 20mg tablet PO SCH ×2 (10:00→20:35)
[2021-01-03] MEDS: lactobacillus rhamnosus 10,000 MMU CELLS/CAPSULE PO SCH ×2 (10:00→20:35)
[2021-01-03] MEDS: digoxin 125mcg (0.125mg) tablet PO SCH (10:00)
[2021-01-03] MEDS: rivaroxaban 20mg tablet PO SCH (10:00)
[2021-01-03] MEDS: nystatin 15 GM powder TP SCH ×2 (10:03→20:35)
[2021-01-03 11:00] VITALS: BP 119/59
[2021-01-03] MEDS: baclofen 10mg tablet PO PRN ×2 (12:08→20:40)
[2021-01-03 18:30] VITALS: BP 120/64
[2021-01-03] MEDS: atorvastatin 10mg tablet PO SCH (20:35)
[2021-01-03] MEDS: QUEtiapine 25mg tablet PO SCH (20:35)
[2021-01-03 23:00] VITALS: BP 108/57
[2021-01-04] MEDS: oxyCODONE/APAP 10/325mg tablet PO PRN ×5 (02:17→19:29)
--- NOTE | 2021-01-04 06:42 | NUR ---
Patient in room DANIEL 353. I have received report from debby RN with Jeni CRUZ and had the opportunity to ask questions and assume patient care.
--- NOTE | 2021-01-04 06:50 | NUR ---
Problems reprioritized. Patient report given, questions answered & plan of care reviewed with NANCY Ngo.
[2021-01-04] MEDS: digoxin 125mcg (0.125mg) tablet PO SCH (07:45)
[2021-01-04] MEDS: lactobacillus rhamnosus 10,000 MMU CELLS/CAPSULE PO SCH ×2 (07:46→19:29)
[2021-01-04] MEDS: diltiazem CD 180mg cap (once-daily) PO SCH (07:46)
[2021-01-04] MEDS: rivaroxaban 20mg tablet PO SCH (07:46)
[2021-01-04] MEDS: levoTHYROXINE 175mcg tablet PO SCH (07:47)
[2021-01-04] MEDS: docusate sod 100mg capsule PO SCH ×2 (07:47→19:28)
[2021-01-04] MEDS: pantoprazole 40mg Tablet.DR PO SCH (07:47)
[2021-01-04] MEDS: citalopram 20mg tablet PO SCH ×2 (07:47→19:28)
[2021-01-04] MEDS: venlafaxine XR 75mg capsule (Q24H) PO SCH (07:48)
[2021-01-04] MEDS: ondansetron/PF 4mg/2ml inj IV PRN (07:48)
[2021-01-04] MEDS: ondansetron 4mg rapidly disintigrating tab PO PRN (07:57)
[2021-01-04 08:00] VITALS: BP 109/55
[2021-01-04] MEDS: K and/or MAG REPLACEMENT MC SCH ×2 (08:00→20:00)
[2021-01-04] MEDS: nystatin 15 GM powder TP SCH ×2 (08:00→20:00)
[2021-01-04] MEDS: furosemide 20MG tablet PO SCH (08:00)
[2021-01-04 08:58] VITALS: BP 100/49
[2021-01-04 11:00] VITALS: BP 127/69
[2021-01-04] MEDS ORDERED: OXYC-150 PO (16:31)
--- NOTE | 2021-01-04 17:47 | NUR ---
Student documentation: I have reviewed and agree with all interventions, assessments performed and documented by Ruth Ann Davies Student.
--- NOTE | 2021-01-04 18:30 | NUR ---
Problems reprioritized. Patient report given, questions answered & plan of care reviewed with Jarad CRUZ.
--- NOTE | 2021-01-04 18:35 | NUR ---
Patient in room DANIEL 353. I have received report from Jeni CRUZ and had the opportunity to ask questions and assume patient care.
[2021-01-04 18:45] VITALS: BP 91/54
[2021-01-04] MEDS: QUEtiapine 25mg tablet PO SCH (21:56)
[2021-01-04] MEDS: atorvastatin 10mg tablet PO SCH (21:56)
[2021-01-04 23:42] VITALS: BP 101/48
[2021-01-05] MEDS: oxyCODONE/APAP 10/325mg tablet PO PRN ×4 (01:01→14:32)
--- NOTE | 2021-01-05 06:34 | NUR ---
Problems reprioritized. Patient report given, questions answered & plan of care reviewed with Yamil RN.
[2021-01-05 07:16] VITALS: BP 84/54
[2021-01-05] MEDS: nystatin 15 GM powder TP SCH (08:00)
[2021-01-05] MEDS: K and/or MAG REPLACEMENT MC SCH (08:00)
[2021-01-05] MEDS: pantoprazole 40mg Tablet.DR PO SCH (09:47)
[2021-01-05] MEDS: rivaroxaban 20mg tablet PO SCH (09:48)
[2021-01-05] MEDS: levoTHYROXINE 175mcg tablet PO SCH (09:48)
[2021-01-05] MEDS: lactobacillus rhamnosus 10,000 MMU CELLS/CAPSULE PO SCH (09:48)
[2021-01-05] MEDS: docusate sod 100mg capsule PO SCH (09:48)
[2021-01-05] MEDS: citalopram 20mg tablet PO SCH (09:50)
[2021-01-05] MEDS: digoxin 125mcg (0.125mg) tablet PO SCH (09:50)
[2021-01-05] MEDS: furosemide 20MG tablet PO SCH (09:51)
[2021-01-05] MEDS: venlafaxine XR 75mg capsule (Q24H) PO SCH (09:51)
[2021-01-05] MEDS: diltiazem CD 180mg cap (once-daily) PO SCH (09:51)
[2021-01-05 11:19] VITALS: BP 103/52
--- NOTE | 2021-01-05 17:33 | NUR ---
Patient discharged yesterday all discharge instruction given then and IV taken out. Patient given dressings just in case drainage occurs.
== END 2021-01-05 15:30 | disposition home health service (06) | DRG 853 ==
LOC: ER 13:47 → ED HOLD 23:03 → ORTHO 4S 12-21 07:30 → SUR 3N 12-23 15:31
PROVIDERS: ADMIT Family Medicine; ATTEND Internal Medicine
PROC: 0SP904Z Removal of Internal Fixation Device from Right Hip Joint, Open Approach (ICD-10-PCS; 2020-12-24)
PROC: 3E0T3BZ Introduction of Anesthetic Agent into Peripheral Nerves and Plexi, Percutaneous Approach (ICD-10-PCS; 2020-12-24)
PROC: 3E0T33Z Introduction of Anti-inflammatory into Peripheral Nerves and Plexi, Percutaneous Approach (ICD-10-PCS; 2020-12-24)
PROC: 0QS606Z Reposition Right Upper Femur with Intramedullary Internal Fixation Device, Open Approach (ICD-10-PCS; principal; 2020-12-24 11:30)
PROC: 30233N1 Transfusion of Nonautologous Red Blood Cells into Peripheral Vein, Percutaneous Approach (ICD-10-PCS; 2020-12-27)
DX: A41.9 Sepsis, unspecified organism (principal); G93.41 Metabolic encephalopathy; S72.21XA Displaced subtrochanteric fracture of right femur, initial encounter for closed fracture; N39.0 Urinary tract infection, site not specified; D62 Acute posthemorrhagic anemia; E87.6 Hypokalemia; E86.0 Dehydration; Z96.643 Presence of artificial hip joint, bilateral; B96.89 Other specified bacterial agents as the cause of diseases classified elsewhere; E03.9 Hypothyroidism, unspecified; E66.01 Morbid (severe) obesity due to excess calories; E78.00 Pure hypercholesterolemia, unspecified; I48.91 Unspecified atrial fibrillation; F32.9 Major depressive disorder, single episode, unspecified; F41.9 Anxiety disorder, unspecified; K72.90 Hepatic failure, unspecified without coma; Z20.822 Contact with and (suspected) exposure to COVID-19; E78.5 Hyperlipidemia, unspecified; F17.210 Nicotine dependence, cigarettes, uncomplicated; Z60.2 Problems related to living alone; G89.4 Chronic pain syndrome; I10 Essential (primary) hypertension; W18.39XA Other fall on same level, initial encounter; I25.10 Atherosclerotic heart disease of native coronary artery without angina pectoris; M54.5 Low back pain; I25.2 Old myocardial infarction; Z68.32 Body mass index [BMI] 32.0-32.9, adult; Z82.49 Family history of ischemic heart disease and other diseases of the circulatory system; Z83.3 Family history of diabetes mellitus; Z87.11 Personal history of peptic ulcer disease; Z95.5 Presence of coronary angioplasty implant and graft; Z88.2 Allergy status to sulfonamides; Z98.51 Tubal ligation status; Y93.89 Activity, other specified; Y92.89 Other specified places as the place of occurrence of the external cause; Y99.8 Other external cause status; Z79.899 Other long term (current) drug therapy; Z79.890 Hormone replacement therapy; Z79.01 Long term (current) use of anticoagulants
CPT/HCPCS: 36415; 36430; 71045; 72170; 72192; 73502; 73522; 73552; 76000; 80047; 80053; 80162; 81001; 82948; 83605; 83735; 83880; 84100; 84443; 84484; 85025; 85610; 85730; 86870; 86880; 86885; 86900; 86901; 86902; 86920; 86922; 87040; 87077; 87081; 87088; 87186; 87635; 92508; 92616; 94667; 94668; 94760; 96365; 96375; 97110; 97112; 97116; 97161; 97530; 99285; A4618; A6258; A6449; A7000; C1713; C9520; G0378; J0696; J1100; J1170; J1885; J1940; J2060; J2250; J2270; J2405; J2710; J2795; J3010; J3370; J3480; J3490; J7120; P9016; P9045

== ENCOUNTER 2021-01-14 20:22 | Emergency (ER) | payer MEDICARE, MEDICAID ==
[~2021-01-14] VITALS: Ht 167.6 cm; Wt 81.8 kg
[~2021-01-14 20:22] MED LIST changes: +ATOR10TA70 PO; -CHLO25CA10 PO; +DOCU-22 PO; +FURO-149 PO; +HYDR-3972; -NITR0.4T51 SL; +OXYC-150 PO; +OXYC15TA; +POTA20TA19 PO; -PRAV20TA4 PO; +QUET25TA36 PO; +RIVA20TA PO
[2021-01-14] MEDS ORDERED: ondansetron/PF 4mg/2ml inj IV ONE (21:10)
[2021-01-14] MEDS ORDERED: morphine 4 MG/ML inj SYRINge IV ONE (21:10)
[2021-01-14] MEDS ORDERED: diazepam inj 5 MG/ML inj. IV ONE (22:50)
[2021-01-14 23:25] LABS: BASOPHILS % (AUTO) 0.6 % (0-1); EOSINOPHILS # (AUTO) 0.2 X10'3 (0-0.9); EOSINOPHILS % (AUTO) 3.5 % (0-6); HEMATOCRIT 23.5 % (35.0-45.0); HEMOGLOBIN 7.8 g/dl (12.0-16.0); LYMPHOCYTES # (AUTO) 2.2 X10'3 (1.1-4.8); LYMPHOCYTES % (AUTO) 30.8 % (21-51); MEAN CORPUSCULAR HEMOGLOBIN 25.8 PG (27.0-31.0); MEAN CORPUSCULAR HGB CONC 33.2 g/dL (33.0-36.5); MEAN CORPUSCULAR VOLUME 77.6 FL (78-98); MEAN PLATELET VOLUME 7.2 FL (7.4-10.4); MONOCYTES # (AUTO) 0.6 X10'3 (0-0.9); MONOCYTES % (AUTO) 8.7 % (2-12); NEUTROPHILS # (AUTO) 4.1 X10'3 (1.8-7.7); NEUTROPHILS % (AUTO) 56.4 % (42-75); PLATELET COUNT 187 X10'3 (140-440); RED BLOOD COUNT 3.03 X10'6 (4.20-5.60); RED CELL DISTRIBUTION WIDTH 16.3 % (11.5-14.5); WHITE BLOOD COUNT 7.2 X10'3 (4.5-11.0)
[2021-01-14 23:31] LABS: ALBUMIN 2.6 G/DL (3.4-5.0); ANION GAP 8 (8-16); BLOOD UREA NITROGEN 5 MG/DL (7-18); BUN/CREATININE RATIO 7.5 (6.6-38.0); CALCIUM 8.6 MG/DL (8.5-10.1); CHLORIDE 107 MMOL/L (99-107); CREATININE 0.67 MG/DL (0.40-0.90); GLUCOSE 91 MG/DL (70-104); POTASSIUM 3.5 MMOL/L (3.5-5.1); SODIUM 143 MMOL/L (135-145); TOTAL CARBON DIOXIDE 28.5 MMOL/L (24-32); eGFR 88 ML/MIN
[2021-01-15] MEDS ORDERED: potassium Cl 20 mEq SR tablet PO STA (00:01)
[2021-01-15] MEDS ORDERED: oxyCODONE/APAP 5-325mg tablet PO ONE (00:20)
--- NOTE | 2021-01-15 02:07 | NUR ---
SPOKE TO PENNY. SHE IS UNABLE TO PICK PT UP. GAVE PHONE INFORMATION ON SON, AUGUST, [phone]
--- NOTE | 2021-01-15 02:16 | NUR ---
JOSE KOCH WILL BE ABLE TO PICK PT UP. ETA 40 MINUTES
[2021-01-15 03:09] VITALS: BP 112/55
[2021-01-16] MEDS ORDERED: OXYC-150 PO (14:59)
[2021-01-16] MEDS ORDERED: ONDA4TAB6 PO (15:36)
== END 2021-01-15 02:45 | disposition home or self-care (01) ==
LOC: ER 20:22
DX: M25.551 Pain in right hip (principal); I25.10 Atherosclerotic heart disease of native coronary artery without angina pectoris; E78.00 Pure hypercholesterolemia, unspecified; I10 Essential (primary) hypertension; I25.2 Old myocardial infarction; G89.29 Other chronic pain; F41.9 Anxiety disorder, unspecified; F32.9 Major depressive disorder, single episode, unspecified; F17.210 Nicotine dependence, cigarettes, uncomplicated; Z86.69 Personal history of other diseases of the nervous system and sense organs; Z87.11 Personal history of peptic ulcer disease; Z87.440 Personal history of urinary (tract) infections; Z90.89 Acquired absence of other organs; Z98.51 Tubal ligation status; Z98.890 Other specified postprocedural states; Z60.2 Problems related to living alone; Z88.2 Allergy status to sulfonamides; Z79.899 Other long term (current) drug therapy
CPT/HCPCS: 36415; 73502; 80048; 85025; 96374; 96375; 99284; J2270; J2405; J3360

== ENCOUNTER 2021-01-16 14:33 | Emergency (ER) | payer MEDICARE, MEDICAID ==
[~2021-01-16] VITALS: Ht 167.6 cm; Wt 81.8 kg
[~2021-01-16 14:33] MED LIST changes: -OXYC-150 PO
[2021-01-16 14:51] VITALS: BP 154/76
[2021-01-16] MEDS ORDERED: OXYC-150 PO (14:59)
[2021-01-16] MEDS ORDERED: HYDROcodone/acetaminophen 5mg/325mg tablet PO ONE (15:35)
[2021-01-16] MEDS ORDERED: ondansetron 4mg rapidly disintigrating tab PO ONE (15:35)
[2021-01-16] MEDS ORDERED: ONDA4TAB6 PO (15:36)
== END 2021-01-16 16:02 | disposition home or self-care (01) ==
LOC: ER 14:34
DX: M79.651 Pain in right thigh (principal); R11.2 Nausea with vomiting, unspecified; R53.1 Weakness; M25.551 Pain in right hip; I25.10 Atherosclerotic heart disease of native coronary artery without angina pectoris; E78.00 Pure hypercholesterolemia, unspecified; I10 Essential (primary) hypertension; I25.2 Old myocardial infarction; G89.29 Other chronic pain; F41.9 Anxiety disorder, unspecified; F32.9 Major depressive disorder, single episode, unspecified; Z86.69 Personal history of other diseases of the nervous system and sense organs; Z87.11 Personal history of peptic ulcer disease; Z87.440 Personal history of urinary (tract) infections; Z98.51 Tubal ligation status; Z90.89 Acquired absence of other organs; Z98.890 Other specified postprocedural states; Z60.2 Problems related to living alone; Z88.2 Allergy status to sulfonamides; Z79.899 Other long term (current) drug therapy
CPT/HCPCS: 99283